=== PATIENT | male | born 1950 | race Caucasian/White ===

== ENCOUNTER → 2016-07-12 | Outpatient (CLI) | payer BC ==
[2016-07-12 09:20] LABS: CHLORIDE,CL 107 mmol/L (98-110); SODIUM,NA 141 mmol/L (136-146)
== END ==
LOC: MW.CHFP 08:26
PROVIDERS: ATTEND Family Medicine
DX: I10 Essential (primary) hypertension (principal); E11.9 Type 2 diabetes mellitus without complications; E78.00 Pure hypercholesterolemia, unspecified
CPT/HCPCS: 36415; 80053; 80061; 83036

== ENCOUNTER → 2016-07-14 | Outpatient (CLI) | payer BC ==
--- NOTE | 2016-07-18 13:49 | US ---
EXAMINATION: EMILIE HISTORY: Atherosclerotic heart disease COMPARISON: None TECHNIQUE: Pressures obtained in the upper and lower extremities bilaterally. FINDINGS/IMPRESSION: The left EMILIE is normal and greater than 1. The right EMILIE is normal and greater than 1.
== END ==
LOC: MW.US 14:47
PROVIDERS: ATTEND Family Medicine
DX: M79.604 Pain in right leg (principal); M79.605 Pain in left leg; E11.65 Type 2 diabetes mellitus with hyperglycemia
CPT/HCPCS: 93922; 93922-26

== ENCOUNTER 2016-11-01 22:14 | Emergency (ER) | payer BC, MEDICARE ==
--- NOTE | 2016-11-01 22:37 | EDM.PDOC ---
ED HPI GENERAL MEDICAL PROBLEM - General Chief Complaint: ENT Problem Stated Complaint: TOOTH PAIN Time Seen by Provider: 11/01/16 22:33 - History of Present Illness INITIAL COMMENTS - FREE TEXT/NARRATIVE: HISTORY AND PHYSICAL: History of present illness: Patient 66-year-old male presents with a concern of pentalogy states he's had this off-and-on for the last 6 months been worse recently he is scheduled to get in to see his dentist this is been a financial challenge to date he denies allergies or other concern is been no fever chills nausea vomiting or other complaints Review of systems: As per history of present illness and below otherwise all systems reviewed and negative. Past medical history: As per history of present illness and as reviewed below otherwise noncontributory. Surgical history: As per history of present illness and as reviewed below otherwise noncontributory. Social history: No reported history of drug or alcohol abuse. Family history: As per history of present illness and as reviewed below otherwise noncontributory. Physical exam: HEENT: Atraumatic, normocephalic, pupils reactive, negative for conjunctival pallor or scleral icterus, mucous membranes moist, throat clear, neck supple, nontender, trachea midline. Patient is generally poor dentition he has multiple dental caries with secondary fractures and multiple missing teeth Lungs: Clear to auscultation, breath sounds equal bilaterally, chest nontender. Heart: S1S2, regular, negative for clicks, rubs, or JVD. Abdomen: Soft, nondistended, nontender. Negative for masses or hepatosplenomegaly. Negative for costovertebral tenderness. Pelvis: Stable nontender. Genitourinary: Deferred. Rectal: Deferred. Extremities: Atraumatic, negative for cords or calf pain. Neurovascular unremarkable. Neuro: Awake, alert, oriented. Cranial nerves II through XII unremarkable. Cerebellum unremarkable. Motor and sensory unremarkable throughout. Exam nonfocal. Diagnostics: None Therapeutics: None Impression: #1 dentalgia #2 multiple dental caries #3 rule out dental abscess Definitive disposition and diagnosis as appropriate pending reevaluation and review of above. Left Upper Tooth/Teeth Pain Score (Numeric/FACES): 5 - Related Data Allergies Allergy/AdvReac Type Severity Reaction Status Date / Time ibuprofen [From Motrin] Allergy Hives Verified 10/18/13 15:48 lisinopril Allergy Cannot Verified 10/18/13 15:48 Remember Home Meds: Home Meds Aspirin [Shey Chewable] 162 mg PO DAILY 10/18/13 [History] Clopidogrel [Plavix] 75 mg PO DAILY 10/18/13 [History] Metoprolol Succinate [Toprol XL] 25 mg PO DAILY 10/18/13 [History] Pantoprazole [Protonix] 40 mg PO DAILY 10/18/13 [History] Simvastatin [Zocor] 80 mg PO BEDTIME 10/18/13 [History] metFORMIN [Glucophage] 500 mg PO BIDM 10/18/13 [History] Social & Family History - Tobacco Use Years of Tobacco use: 15 - Alcohol Use Days Per Week of Alcohol Use: 7 Number of Drinks Per Day: 2 Total Drinks Per Week: 14 - Recreational Drug Use Recreational Drug Use: No ED ROS GENERAL - Review of Systems Review Of Systems: ROS reveals no pertinent complaints other than HPI. ED EXAM, GENERAL - Physical Exam Exam: See Below (See dictation) Course - Vital Signs Last Recorded V/S: Last Vital Signs Temp 36.2 C 11/01/16 22:19 Pulse 82 11/01/16 22:19 Resp 24 H 11/01/16 22:19 BP 175/95 H 11/01/16 22:19 Pulse Ox 95 11/01/16 22:19 Departure - Departure Time of Disposition: 22:36 Disposition: Home, Self-Care 01 Condition: Good Clinical Impression: Dentalgia, Dental caries, Dental abscess - Discharge Information Forms: ED Department Discharge Additional Instructions: The following information is given to patients seen in the emergency department who are being discharged to home. This information is to outline your options for follow-up care. We provide all patients seen in our emergency department with a follow-up referral. The need for follow-up, as well as the timing and circumstances, are variable depending upon the specifics of your emergency department visit. If you don't have a primary care physician on staff, we will provide you with a referral. We always advise you to contact your personal physician following an emergency department visit to inform them of the circumstance of the visit and for follow-up with them and/or the need for any referrals to a consulting specialist. The emergency department will also refer you to a specialist when appropriate. This referral assures that you have the opportunity for followup care with a specialist. All of these measure are taken in an effort to provide you with optimal care, which includes your followup. Under all circumstances we always encourage you to contact your private physician who remains a resource for coordinating your care. When calling for followup care, please make the office aware that this follow-up is from your recent emergency room visit. If for any reason you are refused follow-up, please contact the [facility] emergency department at and asked to speak to the emergency department charge nurse. Follow-up dentist as discussed pen VK Ultram as prescribed continue current medications return as needed as discussed
[2016-11-02 00:04] VITALS: BP 139/83
== END 2016-11-02 00:01 | disposition home or self-care (01) ==
LOC: MW.ED 22:14
DX: K02.9 Dental caries, unspecified (principal); K04.7 Periapical abscess without sinus; Z88.8 Allergy status to other drugs, medicaments and biological substances; Z79.82 Long term (current) use of aspirin; Z79.84 Long term (current) use of oral hypoglycemic drugs; Z79.02 Long term (current) use of antithrombotics/antiplatelets; Z79.899 Other long term (current) drug therapy
CPT/HCPCS: 99282; 99283

== ENCOUNTER 2017-04-13 17:56 | Observation (INO) | payer MEDICARE, BC ==
[2017-04-13] MEDS ORDERED: Albuterol/Ipratropium 3.0-0.5 MG/3 ML Neb Soln NEB ONE (18:17)
--- NOTE | 2017-04-13 18:22 | EDM.PDOC ---
ED HPI GENERAL MEDICAL PROBLEM - General Chief Complaint: Respiratory Problem Stated Complaint: COUGH Time Seen by Provider: 04/13/17 18:00 Source of Information: Reports: Patient History Limitations: Reports: No Limitations - History of Present Illness INITIAL COMMENTS - FREE TEXT/NARRATIVE: HISTORY AND PHYSICAL: History of present illness: Patient is a 66-year-old male who presents to the emergency room today with complaints of cough and chest congestion x 3-4 days. He denies any fever or chills. Denies any chest pain or shortness of breath. Does state he has upper abdominal pain when coughing, but not while resting. Denies any nausea, vomiting or diarrhea. Has not had the flu vaccine this year. Declined any previous history of lung diseases or illnesses. Review of systems: As per history of present illness and below otherwise all systems reviewed and negative. Past medical history: As per history of present illness and as reviewed below otherwise noncontributory. Surgical history: As per history of present illness and as reviewed below otherwise noncontributory. Social history: No reported history of drug or alcohol abuse. Family history: As per history of present illness and as reviewed below otherwise noncontributory. Physical exam: Gen.: Well-developed and well-nourished 66-year-old male. Alert and oriented. Appears nontoxic and in no acute distress HEENT: Atraumatic, normocephalic, pupils reactive, negative for conjunctival pallor or scleral icterus, mucous membranes moist, throat clear, neck supple, nontender, trachea midline. Lungs: Fine expiratory wheezing noted to the posterior lungs with diminished bases, breath sounds equal bilaterally, chest nontender. Heart: S1S2, regular rate and rhythm Abdomen: Soft, nondistended, nontender. Negative for masses or hepatosplenomegaly. Negative for costovertebral tenderness. Pelvis: Stable nontender. Genitourinary: Deferred. Rectal: Deferred. Extremities: Atraumatic, moves all per self, negative for cords or calf pain. Neurovascular unremarkable. Neuro: Awake, alert, oriented. Cranial nerves II through XII unremarkable. Cerebellum unremarkable. Motor and sensory unremarkable throughout. Exam nonfocal. Patient tested positive for influenza A. Not a canidate for Tamiflu. Chest x- ray is reading as normal with no pneumonia or infiltrates noted. EKG shows no significant changes since previous, normal sinus rhythm. Patient resting has an oxygen saturation of 88% to 99% on room air. Did ambulate the patient in the hallway and its remain the same. Dr Grajeda is consulted on this case. Patient will be admitted to [facility] for observation for influenza and hypoxia. Patient is agreeable to stay. He denies any questions at this time. Diagnostics: Influenza, chest x-ray, EKG, (new): CBC, CMP Therapeutics: DuoNeb Impression: #1 Influenza A #2 Hypoxemia Plan: Observation admission per Dr. Grajeda Definitive disposition and diagnosis as appropriate pending reevaluation and review of above. Duration: Day(s): Location: Reports: Chest - Related Data Allergies Allergy/AdvReac Type Severity Reaction Status Date / Time ibuprofen [From Motrin] Allergy Hives Verified 04/13/17 18:12 lisinopril Allergy Cannot Verified 04/13/17 18:12 Remember Home Meds: Home Meds Aspirin [Shey Chewable] 162 mg PO DAILY 10/18/13 [History] Clopidogrel [Plavix] 75 mg PO DAILY 10/18/13 [History] Metoprolol Succinate [Toprol XL] 25 mg PO DAILY 10/18/13 [History] Pantoprazole [Protonix] 40 mg PO DAILY 10/18/13 [History] Simvastatin [Zocor] 80 mg PO BEDTIME 10/18/13 [History] metFORMIN [Glucophage] 500 mg PO BIDM 10/18/13 [History] Past Medical History HEENT History: Reports: Impaired Vision Other HEENT History: wears glasses Cardiovascular History: Reports: Hypertension, [place], Stents Gastrointestinal History: Reports: GERD - Infectious Disease History Infectious Disease History: Reports: None - Past Surgical History Cardiovascular Surgical History: Reports: Coronary Artery Stent GI Surgical History: Reports: Appendectomy, Hernia Repair/Other Social & Family History - Family History Family Medical History: Noncontributory - Tobacco Use Smoking Status *Q: Never Smoker Years of Tobacco use: 15 Second Hand Smoke Exposure: No - Caffeine Use Caffeine Use: Reports: Coffee - Alcohol Use Days Per Week of Alcohol Use: 7 Number of Drinks Per Day: 2 Total Drinks Per Week: 14 - Recreational Drug Use Recreational Drug Use: No ED ROS GENERAL - Review of Systems Review Of Systems: ROS reveals no pertinent complaints other than HPI. ED EXAM, GENERAL - Physical Exam Exam: See Below (See dictation) EKG INTERPRETATION EKG Date: 04/13/17 Time: 18:41 Rhythm: NSR Rate (Beats/Min): 100 Course - Vital Signs Last Recorded V/S: Last Vital Signs Temp 98.1 F 04/13/17 18:12 Pulse 106 H 04/13/17 18:12 Resp 20 04/13/17 18:12 BP 135/93 H 04/13/17 18:12 Pulse Ox 91 L 04/13/17 18:12 - Orders/Labs/Meds Orders: Active Orders 24 hr Category Date Time Status Admission Status [Patient Status] [ADT] Stat ADT 04/13/17 19:37 Active EKG Documentation Completion [RC] STAT Care 04/13/17 18:17 Active Oxygen Therapy, ED [RC] ASDIRECTED Care 04/13/17 19:38 Active RT Aerosol Therapy [RC] ASDIRECTED Care 04/13/17 18:17 Active Chest 2V [CR] Stat Exams 04/13/17 18:01 Taken CBC WITH AUTO DIFF [HEME] Stat Lab 04/13/17 19:37 Ordered COMPREHENSIVE METABOLIC PN,CMP [CHEM] Stat Lab 04/13/17 19:37 Ordered Meds: Medications Discontinued Medications Generic Name Dose Route Start Last Admin Trade Name Freq PRN Reason Stop Dose Admin Albuterol/Ipratropium 3 ml 04/13/17 18:17 04/13/17 18:49 Duoneb 3.0-0.5 Mg/3 Ml NEB 04/13/17 18:18 3 ml ONETIME ONE Administration Departure - Departure Time of Disposition: 19:25 Disposition: Refer to Observation Clinical Impression: Influenza A - Discharge Information Referrals: David Gray MD [Primary Care Provider] - Forms: ED Department Discharge Additional Instructions: . - My Orders Last 24 Hours: My Active Orders 04/13/17 18:01 Chest 2V [CR] Stat 04/13/17 18:17 EKG Documentation Completion [RC] STAT RT Aerosol Therapy [RC] ASDIRECTED 04/13/17 19:37 Admission Status [Patient Status] [ADT] Stat CBC WITH AUTO DIFF [HEME] Stat COMPREHENSIVE METABOLIC PN,CMP [CHEM] Stat 04/13/17 19:38 Oxygen Therapy, ED [RC] ASDIRECTED - Assessment/Plan Last 24 Hours: My Active Orders 04/13/17 18:01 Chest 2V [CR] Stat 04/13/17 18:17 EKG Documentation Completion [RC] STAT RT Aerosol Therapy [RC] ASDIRECTED 04/13/17 19:37 Admission Status [Patient Status] [ADT] Stat CBC WITH AUTO DIFF [HEME] Stat COMPREHENSIVE METABOLIC PN,CMP [CHEM] Stat 04/13/17 19:38 Oxygen Therapy, ED [RC] ASDIRECTED
--- NOTE | 2017-04-13 20:13 | PCM.HP ---
H&P History of Present Illness - General Date of Service: 04/13/17 Admit Problem/Dx: Admission Diagnosis/Problem Admission Diagnosis/Problem Influenza due to influenza A virus Source of Information: Patient History Limitations: Reports: No Limitations - History of Present Illness Initial Comments - Free Text/Narative: 66-year-old male presenting emergency department with chief complaint of cough and chest congestion 3-4 days [place] [id number] stents , CAD, hypertension, hyperlipidemia, type 2 diabetes, and hiatal hernia with GERD. Patient states that for the past 3-4 days he has felt generalized weakness with associated cough and congestion. States that main reason why he came in the emergency department was because he was coughing so much that he is stomach muscles were starting hurt. He denies any fever or chills but does state that he has been sweaty in the mornings. He has had no associated nausea or vomiting but one episode of diarrhea today. He did not get the flu vaccine this year. He does have a history of heart disease and had a [place] in 2007 with stents. He is currently on Plavix. Denies any history of pulmonary disease such as asthma or COPD. He is not a smoker. Patient currently denies any chest pain, palpitations , syncopal episodes, or focal neurologic deficits. Emergency department: Patient was found to be hypoxic 88% on room air requiring 2 L nasal cannula to maintain saturations above 92%. He was mildly tachycardic with a heart rate of 104. CBC, CMP, chest x-ray were all unremarkable. Patient was positive for influenza A. Patient was admitted for hypoxia and influenza A. - Related Data Allergies/Adverse Reactions: Allergies Allergy/AdvReac Type Severity Reaction Status Date / Time ibuprofen [From Motrin] Allergy Hives Verified 04/13/17 18:12 lisinopril Allergy Cannot Verified 04/13/17 18:12 Remember Home Medications: Home Meds Aspirin [Shey Chewable] 162 mg PO DAILY 10/18/13 [History] Clopidogrel [Plavix] 75 mg PO DAILY 10/18/13 [History] Metoprolol Succinate [Toprol XL] 25 mg PO DAILY 10/18/13 [History] Pantoprazole [Protonix] 40 mg PO DAILY 10/18/13 [History] Simvastatin [Zocor] 80 mg PO BEDTIME 10/18/13 [History] metFORMIN [Glucophage] 500 mg PO BID 10/18/13 [History] Escitalopram [Lexapro] 10 mg PO BEDTIME 04/13/17 [History] Famotidine 40 mg PO DAILY 04/13/17 [History] Past Medical History HEENT History: Reports: Impaired Vision Other HEENT History: wears glasses Cardiovascular History: Reports: Hypertension, [place], Stents Gastrointestinal History: Reports: GERD - Infectious Disease History Infectious Disease History: Reports: None - Past Surgical History Cardiovascular Surgical History: Reports: Coronary Artery Stent GI Surgical History: Reports: Appendectomy, Hernia Repair/Other Social & Family History - Family History Family Medical History: Noncontributory - Tobacco Use Smoking Status *Q: Never Smoker Years of Tobacco use: 15 Second Hand Smoke Exposure: No - Caffeine Use Caffeine Use: Reports: Coffee - Alcohol Use Days Per Week of Alcohol Use: 7 Number of Drinks Per Day: 2 Total Drinks Per Week: 14 - Recreational Drug Use Recreational Drug Use: No H&P Review of Systems - Review of Systems: Review Of Systems: See Below General: Reports: Malaise, Weakness, Fatigue, Diaphoresis. Denies: Fever, Chills HEENT: Reports: Headaches, Sinus Congestion. Denies: Dysphasia, Sore Throat Pulmonary: Reports: Shortness of Breath, Cough. Denies: Wheezing, Pleuritic Chest Pain, Sputum Cardiovascular: Denies: Chest Pain, Edema Gastrointestinal: Reports: Diarrhea. Denies: Abdominal Pain, Black Stool, Bloody Stool, Nausea, Vomiting Genitourinary: Denies: Dysuria, Hematuria Musculoskeletal: Denies: Neck Pain, Leg Pain Skin: Denies: Cyanosis Psychiatric: Denies: Confusion Neurological: Reports: Headache. Denies: Confusion, Dizziness Hematologic/Lymphatic: Denies: Anemia Exam - Exam Exam: See Below - Vital Signs Vital Signs: Last Vital Signs Temp 98.3 F 04/13/17 20:07 Pulse 104 H 04/13/17 20:07 Resp 24 H 04/13/17 20:07 BP 140/72 04/13/17 20:07 Pulse Ox 93 L 04/13/17 20:07 Weight: 104.326 kg - Exam Quality Assessment: Supplemental Oxygen, DVT Prophylaxis General: Alert, Oriented, Cooperative HEENT: Conjunctiva Clear, EACs Clear, EOMI, Hearing Intact, Mucosa Moist & [place] , Nares Patent, Normal Nasal Septum, Posterior Pharynx Clear, PERRLA Neck: Supple, Trachea Midline, 2 Lungs: Normal Respiratory Effort, Decreased Breath Sounds Cardiovascular: Regular Rate, Regular Rhythm, Normal S1, Normal S2, Systolic Murmur GI/Abdominal Exam: Normal Bowel Sounds, Soft, Non-Tender, No Organomegaly, No Distention Back Exam: Normal Inspection Extremities: Normal Inspection, Non-Tender, No Pedal Edema, Normal Capillary Refill Skin: Warm, Dry, Intact Neurological: Cranial Nerves Intact Neuro Extensive - Mental Status: Alert, Oriented x3, Normal Mood/Affect, Normal Cognition Neuro Extensive - Motor, Sensory, Reflexes: CN II-XII Intact, Normal Gait, Normal Reflexes Psychiatric: Alert, Normal Affect, Normal Mood - Patient Data Result Diagrams: 04/13/17 19:37 04/13/17 20:10 [place] Results Last 24 hrs: Microbiology 04/13/17 18:55 Influenza Type A Antigen Screen - Final Nasopharyngeal Swab Positive Influenza A Ag Influenza Type B Antigen Screen - Final NEGATIVE INFLUENZA B VIRUS AG *Q Meaningful Use (ADM) - VTE *Q VTE Criteria *Q: - Stroke *Q Stroke Criteria *Q: - AMI *Q AMI Criteria *Q: - Problem List (1) Hypoxemia SNOMED Code(s): 379863792 ICD Code: R09.02 - HYPOXEMIA Status: Acute Priority: High Current Visit : Yes (2) History of [place] (myocardial infarction) SNOMED Code(s): 059054139 ICD Code: I25.2 - OLD MYOCARDIAL INFARCTION Status: Chronic Priority: Low Current Visit: Yes (3) Presence of stent in coronary artery in patient with coronary artery disease SNOMED Code(s): 561091940 ICD Code: I25.10 - ATHSCL HEART DISEASE OF [place] CORONARY ARTERY W/O ANG PCTRS; Z95.5 - PRESENCE OF CORONARY ANGIOPLASTY IMPLANT AND GRAFT Status: Chronic Priority: Low Current Visit: Yes (4) DMII (diabetes mellitus, type 2) SNOMED Code(s): 31101615 ICD Code: E11.9 - TYPE 2 DIABETES MELLITUS WITHOUT COMPLICATIONS Status: Chronic Priority: Medium Current Visit: Yes Qualifiers: Diabetes mellitus complication status: without complication Diabetes mellitus grave cleaner insulin use: without grave cleaner use Qualified Code(s): E11.9 - Type 2 diabetes mellitus without complications (5) Hyperlipidemia SNOMED Code(s): 04976637 ICD Code: E78.5 - HYPERLIPIDEMIA, UNSPECIFIED Status: Chronic Priority: Medium Current Visit: Yes Qualifiers: Hyperlipidemia type: unspecified Qualified Code(s): E78.5 - Hyperlipidemia , unspecified (6) Influenza A SNOMED Code(s): 219950311 ICD Code: J10.1 - FLU DUE TO OTH IDENT INFLUENZA VIRUS W OTH RESP MANIFEST Status: Acute Priority: High Current Visit: Yes Problem List Initiated/Reviewed/Updated: Yes Orders Last 24hrs: Active Orders 24 hr Category Date Time Status Admission Status [Patient Status] [ADT] Stat ADT 04/13/17 19:37 Active EKG Documentation Completion [RC] STAT Care 04/13/17 18:17 Active Oxygen Therapy, ED [RC] ASDIRECTED Care 04/13/17 19:38 Active RT Aerosol Therapy [RC] ASDIRECTED Care 04/13/17 18:17 Active Chest 2V [CR] Stat Exams 04/13/17 18:01 Taken CBC WITH AUTO DIFF [HEME] Stat Lab 04/13/17 19:37 Ordered COMPREHENSIVE METABOLIC PN,CMP [CHEM] Stat Lab 04/13/17 19:37 Ordered Assessment/Plan Comment:: 66-year-old male admitted 04/13/17 for hypoxia with influenza A [place] [address] stents on Plavix, CAD, hypertension, hyperlipidemia, type 2 diabetes, and hiatal hernia with GERD. Hypoxia: no history of pulmonary disease and patient is not a smoker. He is still has somewhat decreased breath sounds throughout but chest x-ray was negative. Will treat with DuoNeb every 6 hours and wean oxygen as tolerated. influenza A: Influenza A positive only treat will treat with Tamiflu 75 mg by mouth twice a day. CAD with stent 3: Currently stable we'll continue Plavix and home medications and continue to monitor. Hypertension: Currently stable will resume home medications. Hyperlipidemia: Currently stable resume home medications. Type 2 diabetes: Hold all medications placed on insulin sliding scale medium dose. TIDAC glucose checks GERD: Currently on PPI which we will continue. VTE proph: Heparin, SCD Dispo: 1-2 days pending.
[2017-04-13 20:52] LABS: CHLORIDE,CL 102 mmol/L (98-110); SODIUM,NA 139 mmol/L (136-146)
[2017-04-13] MEDS ORDERED: Lactated Ringers 1,000 ML IV ONE (21:12)
[2017-04-13] MEDS ORDERED: Ondansetron 4 MG/2 ML SDV IVPUSH PRN (22:12)
[2017-04-13] MEDS ORDERED: Benzonatate 100 MG Cap PO PRN (22:12)
[2017-04-13] MEDS ORDERED: Albuterol/Ipratropium 3.0-0.5 MG/3 ML Neb Soln NEB PRN (22:12)
[2017-04-13] MEDS ORDERED: Ondansetron 4 MG Tab.DIS PO PRN (22:12)
[2017-04-13] MEDS ORDERED: Escitalopram 10 MG Tab PO ONE (22:38)
[2017-04-13] MEDS ORDERED: Morphine 2 MG/ML Syringe IVPUSH PRN (22:45)
[2017-04-13] MEDS: Heparin Sodium 5,000 Units/ML Vial SUBCUT SCH (22:50)
[2017-04-13] MEDS: Oseltamivir 75 MG Cap PO SCH (22:51)
[2017-04-13] MEDS ORDERED: Pneumococcal Polyvalent-23 Vaccine 0.5 ML SDV IM ONE (23:20)
[2017-04-13] MEDS ORDERED: FLU Vacc QS 2017-18 (36mos UP)/PF 60 MCG/0.5 ML Syringe IM ONE (23:30)
[2017-04-14] MEDS: Acetaminophen 325 MG Tab PO PRN ×2 (00:04→08:32)
[2017-04-14] MEDS ORDERED: Calcium Carbonate 500 MG Tab.Chew PO PRN (01:58)
[2017-04-14] MEDS: Heparin Sodium 5,000 Units/ML Vial SUBCUT SCH (06:43)
[2017-04-14] MEDS: Insulin Aspart 100 Units/ML 3 ML Pen SUBCUT SCH ×2 (06:44→11:59)
[2017-04-14 06:46] LABS: CHLORIDE,CL 102 mmol/L (98-110); SODIUM,NA 135 mmol/L (136-146)
[2017-04-14] MEDS ORDERED: Calcium Carbonate 500 MG Tab.Chew PO ONE (08:06)
[2017-04-14] MEDS: Oseltamivir 75 MG Cap PO SCH (08:28)
[2017-04-14] MEDS ORDERED: Clopidogrel 75 MG Tab PO SCH (09:00)
[2017-04-14] MEDS ORDERED: Aspirin 81 MG Tab.Chew PO SCH (09:00)
[2017-04-14] MEDS ORDERED: Metoprolol Succinate 25 MG Tab.ER PO SCH (09:00)
--- NOTE | 2017-04-14 10:29 | PCM.PN ---
- Patient Data Vitals - Most Recent: Last Vital Signs Temp 98.3 F 04/14/17 08:00 Pulse 106 H 04/14/17 08:27 Resp 18 04/14/17 08:00 BP 133/76 04/14/17 08:27 Pulse Ox 93 L 04/14/17 08:00 Weight - Most Recent: 104.326 kg I&O - Last 24 Hours: Intake & Output 04/13/17 04/14/17 04/14/17 22:59 06:59 14:59 Intake Total 200 Output Total 450 Balance -250 Lab Results Last 24 Hours: Laboratory Results - last 24 hr 04/14/17 04/14/17 04/14/17 Range/Units 06:05 06:05 06:18 WBC 6.25 (4.0-11.0) K/uL RBC 4.67 (4.50-5.90) M/uL Hgb 14.0 (13.0-17.0) g/dL Hct 42.8 (38.0-50.0) % MCV 91.6 (80.0-98.0) fL MCH 30.0 (27.0-32.0) pg MCHC 32.7 (31.0-37.0) g/dL RDW Std Deviation 46.9 (28.0-62.0) fl RDW Coeff of Jose Enrique 14 (11.0-15.0) % Plt Count 202 (150-400) K/uL MPV 12.00 (7.40-12.00) fL Nucleated RBC % 0.0 /100WBC Nucleated RBCs # 0 K/uL Sodium 135 L (136-146) mmol/L Potassium 3.7 (3.5-5.1) mmol/L Chloride 102 (98-110) mmol/L Carbon Dioxide 22 (21-31) mmol/L BUN 13 (6.0-23.0) mg/dL Creatinine 0.8 (0.6-1.5) mg/dL Est Cr Clr Drug Dosing 75.53 mL/min Estimated GFR (MDRD) > 60.0 ml/min Glucose 179 H (60-110) mg/dL POC Glucose 181 H (60-110) mg/dL Calcium 8.6 L (8.8-10.8) mg/dL Med Orders - Current: Current Medications Acetaminophen (Tylenol) 650 mg PO Q4H PRN PRN Reason: Pain (Mild 1-3)/fever Last Admin: 04/14/17 08:32 Dose: 650 mg Albuterol/Ipratropium (Duoneb 3.0-0.5 Mg/3 Ml) 3 ml NEB Q6HRRT PRN PRN Reason: Shortness Of Breath/wheezing Aspirin (Aspirin) 162 mg PO DAILY [facility] Last Admin: 04/14/17 08:27 Dose: 162 mg Benzonatate (Tessalon Perles) 200 mg PO BID PRN PRN Reason: Cough Last Admin: 04/13/17 22:50 Dose: 200 mg Calcium Carbonate/Glycine (Tums) 1,000 mg PO Q4H PRN PRN Reason: Indigestion Clopidogrel Bisulfate (Plavix) 75 mg PO DAILY [facility] Last Admin: 04/14/17 08:28 Dose: 75 mg Escitalopram Oxalate (Lexapro) 10 mg PO BEDTIME [facility] Heparin Sodium (Porcine) (Heparin Sodium) 5,000 units SUBCUT Q8H [facility] Last Admin: 04/14/17 06:43 Dose: 5,000 units Insulin Aspart (Novolog) 0 unit SUBCUT TIDAC [facility] PRN Reason: Protocol Last Admin: 04/14/17 06:44 Dose: 2 units Metoprolol Succinate (Toprol Xl) 25 mg PO DAILY [facility] Last Admin: 04/14/17 08:27 Dose: 25 mg Morphine Sulfate (Morphine) 2 mg IVPUSH Q2H PRN PRN Reason: Pain (severe 7-10) Ondansetron HCl (Zofran Odt) 4 mg PO Q4H PRN PRN Reason: nausea, able to take PO Ondansetron HCl (Zofran) 4 mg IVPUSH Q4H PRN PRN Reason: Nausea Oseltamivir Phosphate (Tamiflu) 75 mg PO BID [facility] Last Admin: 04/14/17 08:28 Dose: 75 mg Simvastatin (Zocor) 80 mg PO BEDTIME [facility] Discontinued Medications Albuterol/Ipratropium (Duoneb 3.0-0.5 Mg/3 Ml) 3 ml NEB ONETIME ONE Stop: 04/13/17 18:18 Last Admin: 04/13/17 18:49 Dose: 3 ml Calcium Carbonate/Glycine (Tums) 1,000 mg PO ONETIME ONE Stop: 04/14/17 08:07 Last Admin: 04/14/17 08:27 Dose: 1,000 mg Escitalopram Oxalate (Lexapro) 10 mg PO ONETIME ONE Stop: 04/13/17 22:39 Last Admin: 04/13/17 22:50 Dose: 10 mg Lactated Ringer's (Ringers, Lactated) 1,000 mls @ 150 mls/hr IV .BOLUS ONE Stop: 04/14/17 03:51 Last Admin: 04/13/17 22:50 Dose: 150 mls/hr Influenza Virus Vaccine (Pharmacy To Dose - Influenza Vaccine) 1 each IM ONETIME ONE Stop: 04/13/17 23:21 Influenza Virus Vaccine (Fluarix Quad [id number]) 60 mcg IM .ONCE ONE Stop: 04/13/17 23:31 Pneumococcal Polyvalent Vaccine (Pneumovax 23) 0.5 ml IM .ONCE ONE Stop: 04/13/17 23:21 - Problem List & Annotations (1) Hypoxemia SNOMED Code(s): 003132881 Code(s): R09.02 - HYPOXEMIA Status: Acute Priority: High Current Visit : Yes (2) History of MD (myocardial infarction) SNOMED Code(s): 879945016 Code(s): I25.2 - OLD MYOCARDIAL INFARCTION Status: Chronic Priority: Low Current Visit: Yes (3) Presence of stent in coronary artery in patient with coronary artery disease SNOMED Code(s): 140414929 Code(s): I25.10 - ATHSCL HEART DISEASE OF [place] CORONARY ARTERY W/O ANG PCTRS; Z95.5 - PRESENCE OF CORONARY ANGIOPLASTY IMPLANT AND GRAFT Status: Chronic Priority: Low Current Visit: Yes (4) DMII (diabetes mellitus, type 2) SNOMED Code(s): 97470013 Code(s): E11.9 - TYPE 2 DIABETES MELLITUS WITHOUT COMPLICATIONS Status: Chronic Priority: Medium Current Visit: Yes Qualifiers: Diabetes mellitus complication status: without complication Diabetes mellitus care home insulin use: without research worker kitchen use Qualified Code(s): E11.9 - Type 2 diabetes mellitus without complications (5) Hyperlipidemia SNOMED Code(s): 90943093 Code(s): E78.5 - HYPERLIPIDEMIA, UNSPECIFIED Status: Chronic Priority: Medium Current Visit: Yes Qualifiers: Hyperlipidemia type: unspecified Qualified Code(s): E78.5 - Hyperlipidemia , unspecified (6) Influenza A SNOMED Code(s): 268490512 Code(s): J10.1 - FLU DUE TO OTH IDENT INFLUENZA VIRUS W OTH RESP MANIFEST Status: Acute Priority: High Current Visit: Yes - My Orders Last 24 Hours: My Active Orders 04/13/17 21:00 Oseltamivir [Tamiflu] 75 mg PO BID 04/13/17 22:12 Patient Status [ADT] Routine Blood Glucose Check, Bedside [RC] TIDAC Up With Assistance [RC] ASDIRECTED Vital Signs [RC] Q4H Acetaminophen [Tylenol] 650 mg PO Q4H PRN Albuterol/Ipratropium [DuoNeb 3.0-0.5 MG/3 ML] 3 ml NEB Q6HRRT PRN Benzonatate [Tessalon Perles] 200 mg PO BID PRN Ondansetron [Zofran ODT] 4 mg PO Q4H PRN Ondansetron [Zofran] 4 mg IVPUSH Q4H PRN Resuscitation Status Routine 04/13/17 22:13 Antiembolic Devices [RC] PER UNIT ROUTINE Sequential Compression Device [OM.PC] Per Unit Routine 04/13/17 22:14 RT Aerosol Therapy [RC] ASDIRECTED 04/13/17 22:15 Heparin Sodium 5,000 units SUBCUT Q8H 04/13/17 22:45 Morphine 2 mg IVPUSH Q2H PRN 04/14/17 01:58 Calcium Carbonate [Tums] 1,000 mg PO Q4H PRN 04/14/17 07:30 Insulin Aspart [NovoLOG] See Protocol SUBCUT TIDAC 04/14/17 09:00 Aspirin 162 mg PO DAILY Clopidogrel [Plavix] 75 mg PO DAILY Metoprolol Succinate [Toprol XL] 25 mg PO DAILY 04/14/17 21:00 Escitalopram [Lexapro] 10 mg PO BEDTIME Simvastatin [Zocor] 80 mg PO BEDTIME 04/14/17 Breakfast Heart Healthy Diet [DIET] 04/15/17 05:11 BASIC METABOLIC PANEL,BMP [CHEM] AM CBC W/O DIFF,HEMOGRAM [HEME] AM 04/16/17 05:11 BASIC METABOLIC PANEL,BMP [CHEM] AM CBC W/O DIFF,HEMOGRAM [HEME] AM - Plan Plan:: 66-year-old male admitted 04/13/17 for hypoxia with influenza A and past medical history of MD in stents on Plavix, CAD, hypertension, hyperlipidemia, type 2 diabetes, and hiatal hernia with GERD. Hypoxia: no history of pulmonary disease and patient is not a smoker. He is still has somewhat decreased breath sounds throughout but chest x-ray was negative. Will treat with DuoNeb every 6 hours and wean oxygen as tolerated. influenza A: Influenza A positive only treat will treat with Tamiflu 75 mg by mouth twice a day. CAD with stent 3: Currently stable we'll continue Plavix and home medications and continue to monitor. Hypertension: Currently stable will resume home medications. Hyperlipidemia: Currently stable resume home medications. Type 2 diabetes: Hold all medications placed on insulin sliding scale medium dose. TIDAC glucose checks GERD: Currently on PPI which we will continue. VTE proph: Heparin, SCD Dispo: 1-2 days pending.
--- NOTE | 2017-04-14 11:55 | PCM.DCSUM1 ---
Discharge Summary - Hospital Course HPI Initial Comments: 66-year-old male admitted 04/13/17 for hypoxia with influenza [place] [id number] [place] Plavix, CAD, hypertension, hyperlipidemia, type 2 diabetes, and hiatal hernia with GERD. Brief History: Patient stated that for the previous 3-4 days before admission he felt generalized weakness with associated cough and congestion. Stated that main reason why he came in to the emergency department was because he was coughing so much that his stomach muscles were starting hurt. He denied any fever or chills but did state that he had been sweaty in the mornings. He had no associated nausea or vomiting but one episode of diarrhea on day of admission. He did not get the flu vaccine this year. He does have a history of heart disease and had a [place] in 2007 with stents. He is currently on Plavix. Denied any history of pulmonary disease such as asthma or COPD. He is not a smoker. Patient denied any chest pain, palpitations, syncopal episodes, or focal neurologic deficits. - Discharge Data Discharge Date: 04/14/17 Discharge Disposition: Home, Self-Care 01 Condition: Good - Discharge Diagnosis/Problem(s) (1) Hypoxemia SNOMED Code(s): 794051099 ICD Code: R09.02 - HYPOXEMIA Status: Resolved Priority: High (2) History of [place] (myocardial infarction) SNOMED Code(s): 501268096 ICD Code: I25.2 - OLD MYOCARDIAL INFARCTION Status: Chronic Priority: Low (3) Presence of stent in coronary artery in patient with coronary artery disease SNOMED Code(s): 927832063 ICD Code: I25.10 - ATHSCL HEART DISEASE OF [place] CORONARY ARTERY W/O ANG PCTRS; Z95.5 - PRESENCE OF CORONARY ANGIOPLASTY IMPLANT AND GRAFT Status: Chronic Priority: Low (4) DMII (diabetes mellitus, type 2) SNOMED Code(s): 07521971 ICD Code: E11.9 - TYPE 2 DIABETES MELLITUS WITHOUT COMPLICATIONS Status: Chronic Priority: Medium Qualifiers: Diabetes mellitus complication status: without complication Diabetes mellitus detention insulin use: without detention use Qualified Code(s): E11.9 - Type 2 diabetes mellitus without complications (5) Hyperlipidemia SNOMED Code(s): 01030896 ICD Code: E78.5 - HYPERLIPIDEMIA, UNSPECIFIED Status: Chronic Priority: Medium Qualifiers: Hyperlipidemia type: unspecified Qualified Code(s): E78.5 - Hyperlipidemia , unspecified (6) Influenza A SNOMED Code(s): 942083559 ICD Code: J10.1 - FLU DUE TO OTH IDENT INFLUENZA VIRUS W OTH RESP MANIFEST Status: Acute Priority: High - Patient Instructions Diet: Heart Healthy Diet Activity: Rest and Relax Today Driving: Do Not Drive Showering/Bathing: May Shower Notify Provider of: Fever, Increased Pain, Nausea and/or Vomiting - Discharge Plan Prescriptions/Med Rec: Oseltamivir Phosphate [IJD: Tamiflu] 75 mg PO BID #8 capsule Home Medications: Home Meds Aspirin [Shey Chewable Aspirin] 162 mg PO DAILY 10/18/13 [History] Clopidogrel [Plavix] 75 mg PO DAILY 10/18/13 [History] Metoprolol Succinate [Toprol XL] 25 mg PO DAILY 10/18/13 [History] Pantoprazole [ProTONIX Granules] 40 mg PO DAILY 10/18/13 [History] Simvastatin [Zocor] 80 mg PO BEDTIME 10/18/13 [History] metFORMIN [Glucophage] 500 mg PO BID 10/18/13 [History] Escitalopram [Lexapro] 10 mg PO BEDTIME 04/13/17 [History] Famotidine 40 mg PO DAILY 04/13/17 [History] Oseltamivir Phosphate [IJD: Tamiflu] 75 mg PO BID #8 capsule 04/14/17 [Rx] Patient Handouts: Influenza, Adult, [id number], Oseltamivir capsules Referrals: David Gray MD [Primary Care Provider] - (Please follow-up with Dr. Gray in 1 week.) - Discharge Summary/Plan Comment DC Time >30 min.: Yes Discharge Summary/Plan Comment: 66-year-old male admitted 04/13/17 for hypoxia with influenza A and past medical history of [place] in stents on Plavix, CAD, hypertension, hyperlipidemia, type 2 diabetes, and hiatal hernia with GERD. Patient stated that for the previous 3-4 days before admission he felt generalized weakness with associated cough and congestion. Stated that main reason why he came in to the emergency department was because he was coughing so much that his stomach muscles were starting hurt. He denied any fever or chills but did state that he had been sweaty in the mornings. He had no associated nausea or vomiting but one episode of diarrhea on day of admission. He did not get the flu vaccine this year. He does have a history of heart disease and had a [place] in 2007 with stents. He is currently on Plavix. Denied any history of pulmonary disease such as asthma or COPD. He is not a smoker. Patient denied any chest pain, palpitations, syncopal episodes, or focal neurologic deficits. Emergency department:Patient was found to be hypoxic 88% on room air requiring 2 L nasal cannula to maintain saturations above 92%. He was mildly tachycardic with a heart rate of 104. CBC, CMP, chest x-ray were all unremarkable. Patient was positive for influenza A. Patient was admitted for hypoxia and influenza A. Patient was given Duo-Nebs as well as Tamiflu and slowly weened from oxygen support. On second day of admission he was sating 94 % on room air and was discharged in good condition with a prescription for Tamiflu, a follow-up appointment with his PCP and told to return to the ED if he had any return or worsening of his symptoms. - General Info Date of Service: 04/14/17 Admission Dx/Problem (Free Text: Admission Diagnosis/Problem Admission Diagnosis/Problem Influenza due to influenza A virus Subjective Update: Doing much better this morning. Still having cough but much improved and no longer needing supplemental oxygen. - Review of Systems General: Reports: Fatigue. Denies: Fever, Weakness, Malaise, Chills HEENT: Denies: Dysphasia, Headaches Pulmonary: Reports: Cough. Denies: Shortness of Breath, Sputum, Hemoptysis Cardiovascular: Denies: Chest Pain, Palpitations Gastrointestinal: Denies: Abdominal Pain, Nausea, Vomiting Genitourinary: Denies: Dysuria, Hematuria Musculoskeletal: Denies: Neck Pain, Leg Pain Skin: Denies: Cyanosis Neurological: Denies: Confusion, Dizziness, Headache Psychiatric: Denies: Confusion - Patient Data Vitals - Most Recent: Last Vital Signs Temp 98.3 F 04/14/17 08:00 Pulse 106 H 04/14/17 08:27 Resp 18 04/14/17 08:00 BP 133/76 04/14/17 08:27 Pulse Ox 93 L 04/14/17 08:00 Weight - Most Recent: 104.326 kg I&O - Last 24 hours: Intake & Output 04/13/17 04/14/17 04/14/17 22:59 06:59 14:59 Intake Total 200 Output Total 450 Balance -250 Lab Results - Last 24 hrs: Laboratory Results - last 24 hr 04/14/17 04/14/17 04/14/17 Range/Units 06:05 06:05 06:18 WBC 6.25 (4.0-11.0) K/uL RBC 4.67 (4.50-5.90) M/uL Hgb 14.0 (13.0-17.0) g/dL Hct 42.8 (38.0-50.0) % MCV 91.6 (80.0-98.0) fL MCH 30.0 (27.0-32.0) pg MCHC 32.7 (31.0-37.0) g/dL RDW Std Deviation 46.9 (28.0-62.0) fl RDW Coeff of Jose Enrique 14 (11.0-15.0) % Plt Count 202 (150-400) K/uL MPV 12.00 (7.40-12.00) fL Nucleated RBC % 0.0 /100WBC Nucleated RBCs # 0 K/uL Sodium 135 L (136-146) mmol/L Potassium 3.7 (3.5-5.1) mmol/L Chloride 102 (98-110) mmol/L Carbon Dioxide 22 (21-31) mmol/L BUN 13 (6.0-23.0) mg/dL Creatinine 0.8 (0.6-1.5) mg/dL Est Cr Clr Drug Dosing 75.53 mL/min Estimated GFR (MDRD) > 60.0 ml/min Glucose 179 H (60-110) mg/dL POC Glucose 181 H (60-110) mg/dL Calcium 8.6 L (8.8-10.8) mg/dL Med Orders - Current: Current Medications Acetaminophen (Tylenol) 650 mg PO Q4H PRN PRN Reason: Pain (Mild 1-3)/fever Last Admin: 04/14/17 08:32 Dose: 650 mg Albuterol/Ipratropium (Duoneb 3.0-0.5 Mg/3 Ml) 3 ml NEB Q6HRRT PRN PRN Reason: Shortness Of Breath/wheezing Aspirin (Aspirin) 162 mg PO DAILY [facility] Last Admin: 04/14/17 08:27 Dose: 162 mg Benzonatate (Tessalon Perles) 200 mg PO BID PRN PRN Reason: Cough Last Admin: 04/13/17 22:50 Dose: 200 mg Calcium Carbonate/Glycine (Tums) 1,000 mg PO Q4H PRN PRN Reason: Indigestion Clopidogrel Bisulfate (Plavix) 75 mg PO DAILY [facility] Last Admin: 04/14/17 08:28 Dose: 75 mg Escitalopram Oxalate (Lexapro) 10 mg PO BEDTIME [facility] Heparin Sodium (Porcine) (Heparin Sodium) 5,000 units SUBCUT Q8H [facility] Last Admin: 04/14/17 06:43 Dose: 5,000 units Insulin Aspart (Novolog) 0 unit SUBCUT TIDAC [facility] PRN Reason: Protocol Last Admin: 04/14/17 06:44 Dose: 2 units Metoprolol Succinate (Toprol Xl) 25 mg PO DAILY [facility] Last Admin: 04/14/17 08:27 Dose: 25 mg Morphine Sulfate (Morphine) 2 mg IVPUSH Q2H PRN PRN Reason: Pain (severe 7-10) Ondansetron HCl (Zofran Odt) 4 mg PO Q4H PRN PRN Reason: nausea, able to take PO Ondansetron HCl (Zofran) 4 mg IVPUSH Q4H PRN PRN Reason: Nausea Oseltamivir Phosphate (Tamiflu) 75 mg PO BID [facility] Last Admin: 04/14/17 08:28 Dose: 75 mg Simvastatin (Zocor) 80 mg PO BEDTIME [facility] Discontinued Medications Albuterol/Ipratropium (Duoneb 3.0-0.5 Mg/3 Ml) 3 ml NEB ONETIME ONE Stop: 04/13/17 18:18 Last Admin: 04/13/17 18:49 Dose: 3 ml Calcium Carbonate/Glycine (Tums) 1,000 mg PO ONETIME ONE Stop: 04/14/17 08:07 Last Admin: 04/14/17 08:27 Dose: 1,000 mg Escitalopram Oxalate (Lexapro) 10 mg PO ONETIME ONE Stop: 04/13/17 22:39 Last Admin: 04/13/17 22:50 Dose: 10 mg Lactated Ringer's (Ringers, Lactated) 1,000 mls @ 150 mls/hr IV .BOLUS ONE Stop: 04/14/17 03:51 Last Admin: 04/13/17 22:50 Dose: 150 mls/hr Influenza Virus Vaccine (Pharmacy To Dose - Influenza Vaccine) 1 each IM ONETIME ONE Stop: 04/13/17 23:21 Influenza Virus Vaccine (Fluarix Quad [id number]) 60 mcg IM .ONCE ONE Stop: 04/13/17 23:31 Pneumococcal Polyvalent Vaccine (Pneumovax 23) 0.5 ml IM .ONCE ONE Stop: 04/13/17 23:21 - Exam Quality Assessment: Reports: DVT Prophylaxis General: Reports: Alert, Oriented, Cooperative, No Acute Distress HEENT: Reports: Pupils Equal, Pupils Reactive, EOMI, Mucous Membr. Moist/[place] Neck: Reports: Supple, Trachea Midline, No JVD Lungs: Reports: Clear to Auscultation, Normal Respiratory Effort Cardiovascular: Reports: Regular Rate, Regular Rhythm, Murmurs GI/Abdominal Exam: Normal Bowel Sounds, Soft, Non-Tender, No Organomegaly, No Distention (Male) Exam: Deferred Rectal (Males) Exam: Deferred Back Exam: Reports: Normal Inspection Extremities: Normal Inspection, Normal Range of Motion, Non-Tender, No Pedal Edema, Normal Capillary Refill Skin: Reports: Warm, Dry, Intact Neurological: Reports: No New Focal Deficit Psy/Mental Status: Reports: Alert, Normal Affect, Normal Mood *Q Meaningful Use (DIS) - VTE *Q VTE Criteria *Q: - Stroke *Q Stroke Criteria *Q: - AMI *Q AMI Criteria *Q:
[2017-04-14 12:16] VITALS: BP 135/86
[2017-04-14] MEDS ORDERED: Simvastatin 40 MG Tab PO SCH (21:00)
[2017-04-14] MEDS ORDERED: Escitalopram 10 MG Tab PO SCH (21:00)
--- NOTE | 2017-04-16 12:32 | CR ---
EXAM DATE: 04/13/17 PATIENT'S AGE: 66 Patient: EITAN SCOTT Facility: [place], [place] Site . Site : 1950 Study: XRay Chest [id number]/26/2018 7:12:59 PM Ordering Physician: Doctor Jo Final Report: INDICATION: Pain, SOB INDICATION: Pain. Shortness of breath. TECHNIQUE: Chest 2 views. COMPARISON: 05/03/2016. FINDINGS: Cardiovascular and mediastinum: Heart size and vasculature are normal in caliber and appearance. Mediastinum is within normal limits. Lungs and pleural spaces: Lungs are clear. No sign of infiltrate or mass. No sign of pleural effusion. No pneumothorax. Bones and soft tissues: No significant findings. IMPRESSION: No acute airspace disease or significant change. Dictated by Dominik Andujar MD @ 04/13/2017 7:18:32 PM Dictated by: Dominik Andujar MD @ 04/13/2017 19:18:54 (Electronic Signature) Report Signed by Proxy. LEOLA
== END 2017-04-14 12:58 | disposition home or self-care (01) ==
LOC: MW.ED 17:56 → MW.MS 20:13
PROVIDERS: ADMIT Family Medicine; ATTEND Family Medicine
DX: J10.1 Influenza due to other identified influenza virus with other respiratory manifestations (principal); R09.02 Hypoxemia; I25.2 Old myocardial infarction; I25.10 Atherosclerotic heart disease of native coronary artery without angina pectoris; I10 Essential (primary) hypertension; E78.5 Hyperlipidemia, unspecified; E11.9 Type 2 diabetes mellitus without complications; K21.9 Gastro-esophageal reflux disease without esophagitis; Z79.82 Long term (current) use of aspirin; Z95.5 Presence of coronary angioplasty implant and graft; Z79.02 Long term (current) use of antithrombotics/antiplatelets; Z79.899 Other long term (current) drug therapy; Z79.84 Long term (current) use of oral hypoglycemic drugs; Z88.6 Allergy status to analgesic agent; Z88.8 Allergy status to other drugs, medicaments and biological substances; Z90.49 Acquired absence of other specified parts of digestive tract
CPT/HCPCS: 36415; 71046; 80048; 80053; 82962; 85025; 85027; 87804; 94640; 96372; 99285; A9270; G0378; J1644; J1815; J7120

== ENCOUNTER 2019-04-15 14:32 | Emergency (ER) | payer BC, MEDICARE ==
--- NOTE | 2019-04-15 15:35 | EDM.PDOC ---
ED HPI GENERAL MEDICAL PROBLEM - General Chief Complaint: General Stated Complaint: COUGH Time Seen by Provider: 04/15/19 15:34 Source of Information: Reports: Patient - History of Present Illness INITIAL COMMENTS - FREE TEXT/NARRATIVE: HISTORY AND PHYSICAL: History of present illness: [Patient presents with cough and sore throat cough is been present for 2 weeks patient is in no distress no fever nausea vomiting chills sweats no chest pain shortness of breath headache dizziness palpitation no bowel or urine symptoms no muffled voice drooling or trismus ] Review of systems: As per history of present illness and below otherwise all systems reviewed and negative. Past medical history: As per history of present illness and as reviewed below otherwise noncontributory. Surgical history: As per history of present illness and as reviewed below otherwise noncontributory. Social history: No reported history of drug or alcohol abuse. Family history: As per history of present illness and as reviewed below otherwise noncontributory. Physical exam: HEENT: Atraumatic, normocephalic, pupils reactive, negative for conjunctival pallor or scleral icterus, mucous membranes moist, throat clear, neck supple, nontender, trachea midline. Oropharynx moderate erythema no exudates no meningeal signs Lungs: Clear to auscultation, breath sounds equal bilaterally, chest nontender. Heart: S1S2, regular, negative for clicks, rubs, or JVD. Abdomen: Soft, nondistended, nontender. Negative for masses or hepatosplenomegaly. Negative for costovertebral tenderness. Pelvis: Stable nontender. Genitourinary: Deferred. Rectal: Deferred. Extremities: Atraumatic, negative for cords or calf pain. Neurovascular unremarkable. Neuro: Awake, alert, oriented. Cranial nerves II through XII unremarkable. Cerebellum unremarkable. Motor and sensory unremarkable throughout. Exam nonfocal. Diagnostics: [INFLUenza/strep chest 1v ] Therapeutics: [Z-Steven HFA ] Impression: [pharyngitis Bronchitis] Definitive disposition and diagnosis as appropriate pending reevaluation and review of above. Throat Pain Score (Numeric/FACES): 8 - Related Data Allergies Allergy/AdvReac Type Severity Reaction Status Date / Time ibuprofen [From Motrin] Allergy Hives Verified 04/15/19 14:56 lisinopril Allergy Cannot Verified 04/15/19 14:56 Remember Home Meds: Home Meds Aspirin [Shey Chewable Aspirin] 162 mg PO DAILY 10/18/13 [History] Clopidogrel [Plavix] 75 mg PO DAILY 10/18/13 [History] Metoprolol Succinate [Toprol XL] 25 mg PO DAILY 10/18/13 [History] Simvastatin [Zocor] 80 mg PO BEDTIME 10/18/13 [History] metFORMIN [Glucophage] 1,000 mg PO DAILY 10/18/13 [History] Escitalopram [Lexapro] 20 mg PO BEDTIME 04/13/17 [History] Famotidine 40 mg PO DAILY 04/13/17 [History] Empagliflozin [Jardiance] 10 mg PO DAILY 04/15/19 [History] Past Medical History HEENT History: Reports: Impaired Vision Other HEENT History: wears glasses Cardiovascular History: Reports: Hypertension, [place], Stents Gastrointestinal History: Reports: GERD Endocrine/Metabolic History: Reports: Diabetes, Type II - Infectious Disease History Infectious Disease History: Reports: Mumps - Past Surgical History Cardiovascular Surgical History: Reports: Coronary Artery Stent GI Surgical History: Reports: Appendectomy, Hernia Repair/Other Social & Family History - Family History Family Medical History: Noncontributory - Tobacco Use Smoking Status *Q: Former Smoker Used Tobacco, but Quit: Yes Month/Year Tobacco Last Used: 1989 - Caffeine Use Caffeine Use: Reports: Soda - Recreational Drug Use Recreational Drug Use: No ED ROS GENERAL - Review of Systems Review Of Systems: See Below ED EXAM, GENERAL - Physical Exam Exam: See Below Course - Vital Signs Last Recorded V/S: Last Vital Signs Temp 98.9 F 04/15/19 15:00 Pulse 104 H 04/15/19 15:00 Resp 18 04/15/19 15:00 BP 140/88 04/15/19 15:00 Pulse Ox 93 L 04/15/19 15:00 - Orders/Labs/Meds Orders: Active Orders 24 hr Category Date Time Status Chest 1V Frontal [CR] Stat Exams 04/15/19 15:09 Taken CULTURE STREP A CONFIRMATION [RM] Stat Lab 04/15/19 15:34 Results STREP SCRN A RAPID W CULT CONF [RM] Stat Lab 04/15/19 15:34 Results Departure - Departure Time of Disposition: 16:09 Disposition: Home, Self-Care 01 Condition: Good Clinical Impression: Pharyngitis, Bronchitis - Discharge Information Referrals: David Gray MD [Primary Care Provider] - Forms: ED Department Discharge Additional Instructions: The following information is given to patients seen in the emergency department who are being discharged to home. This information is to outline your options for follow-up care. We provide all patients seen in our emergency department with a follow-up referral. The need for follow-up, as well as the timing and circumstances, are variable depending upon the specifics of your emergency department visit. If you don't have a primary care physician on staff, we will provide you with a referral. We always advise you to contact your personal physician following an emergency department visit to inform them of the circumstance of the visit and for follow-up with them and/or the need for any referrals to a consulting specialist. The emergency department will also refer you to a specialist when appropriate. This referral assures that you have the opportunity for follow-up care with a specialist. All of these measure are taken in an effort to provide you with optimal care, which includes your follow-up. Under all circumstances we always encourage you to contact your private physician who remains a resource for coordinating your care. When calling for follow-up care, please make the office aware that this follow-up is from your recent emergency room visit. If for any reason you are refused follow-up, please contact the [facility] emergency department at and asked to speak to the emergency department charge nurse. Sepsis Event Note - Evaluation Sepsis Screening Result: No Definite Risk - Focused Exam Vital Signs: Vital Signs Temp Pulse Resp BP Pulse Ox 04/15/19 15:00 98.9 F 104 H 18 140/88 93 L Date Exam was Performed: 04/15/19 Time Exam was Performed: 16:07 - My Orders Last 24 Hours: My Active Orders 04/15/19 15:09 Chest 1V Frontal [CR] Stat 04/15/19 15:34 CULTURE STREP A CONFIRMATION [RM] Stat STREP SCRN A RAPID W CULT CONF [RM] Stat - Assessment/Plan Last 24 Hours: My Active Orders 04/15/19 15:09 Chest 1V Frontal [CR] Stat 04/15/19 15:34 CULTURE STREP A CONFIRMATION [RM] Stat STREP SCRN A RAPID W CULT CONF [RM] Stat
[2019-04-15] MEDS ORDERED: Diphtheria,Pertussis(Acell),Tetanus Vaccine 0.5 ML Syringe IM ONE (16:16)
[2019-04-15 16:54] VITALS: BP 138/89; PULSE 98
--- NOTE | 2019-04-15 17:02 | CR ---
Chest: Portable view of the chest was obtained. Comparison: Prior chest x-ray of 04/13/17. Heart size and mediastinum are normal for portable technique. Lungs are clear with no acute parenchymal change. Bony structures are unremarkable. Impression: 1. Nothing acute is seen on portable chest x-ray. Diagnostic code #1 Study was dictated in [place] Standard Time
== END 2019-04-15 16:50 | disposition home or self-care (01) ==
LOC: MW.ED 14:32
DX: J02.9 Acute pharyngitis, unspecified (principal); J40 Bronchitis, not specified as acute or chronic; T14.8XXA Other injury of unspecified body region, initial encounter; I10 Essential (primary) hypertension; I25.2 Old myocardial infarction; E11.9 Type 2 diabetes mellitus without complications; Z23 Encounter for immunization; Z79.899 Other long term (current) drug therapy; Z90.49 Acquired absence of other specified parts of digestive tract; Z95.5 Presence of coronary angioplasty implant and graft; Z88.6 Allergy status to analgesic agent; Z88.8 Allergy status to other drugs, medicaments and biological substances; Z79.82 Long term (current) use of aspirin; Z79.84 Long term (current) use of oral hypoglycemic drugs; Z87.891 Personal history of nicotine dependence
CPT/HCPCS: 71045; 71045-26; 87081; 87804; 87880-QW; 90471; 90715; 99283; 99283-25

== ENCOUNTER 2019-11-26 18:41 | Observation (INO) | payer BC, MEDICARE ==
[2019-11-26] MEDS ORDERED: Sodium Chloride 0.9% 10 ML Syringe FLUSH PRN (19:26)
[2019-11-26] MEDS ORDERED: Sodium Chloride 0.9% 10 ML SDV IV PRN (19:26)
[2019-11-26] MEDS ORDERED: Sodium Chloride 0.9% 1,000 ML IV STA (19:26)
[2019-11-26] MEDS ORDERED: Sodium Chloride 0.9% 2.5 ML Syringe FLUSH PRN (19:26)
--- NOTE | 2019-11-26 19:50 | CR ---
INDICATION: stroke code CHEST, ONE VIEW An AP radiograph of the chest was performed. Comparison: No previous studies are currently available for comparison. The lungs appear clear and no pleural effusions are identified. The cardiomediastinal silhouette and pulmonary vasculature appear normal, as do the visualized bones. IMPRESSION: No acute intrathoracic abnormality identified. ALYSON LUGO MD [facility] Dictated by: Brandan Lugo MD @ 11/26/2019 19:49:10 (Electronically Signed)
[2019-11-26 20:04] LABS: BLOOD UREA NITROGEN,BUN 10 mg/dL (7.0-18.0); CARBON DIOXIDE,CO2 20.4 mmol/L (21.0-32.0); CHLORIDE,CL 104 mmol/L (98-107); GLUCOSE RANDOM 129 mg/dL (74-106); POTASSIUM,K 3.9 mmol/L (3.5-5.1); SODIUM,NA 139 mmol/L (136-148)
--- NOTE | 2019-11-26 20:10 | EDM.PDOC ---
ED HPI GENERAL MEDICAL PROBLEM - General Chief Complaint: General Stated Complaint: SLURRING WORDS Time Seen by Provider: 11/26/19 19:00 - History of Present Illness INITIAL COMMENTS - FREE TEXT/NARRATIVE: HISTORY AND PHYSICAL: History of present illness: This is a 69-year-old gentleman with a history significant for hypertension, diabetes, CAD status post stent several years ago who presents ER today secondary to slurred speech and difficulty with word finding that occurred earlier today. Patient's last known well according to the is 4 PM this evening. reports that at around 530 she noticed that he was having slurring the speech after making dinner. 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 Patient denies any recent fevers, shakes, chills, nausea, vomiting, diarrhea, dysuria, frequency, urgency, chest pain, shortness of breath, abdominal pain. Patient h as been tolerating p.o.'s well without any difficulty. Patient denies any weakness to his upper or lower extremities. reports no facial droop identified. Upon my evaluation the ED, the patient appears to be in good spirits and reports that he is asymptomatic. Patient does recall the episode of difficulty speaking. Review of systems: As per history of present illness and below otherwise all systems reviewed and negative. Past medical history: As per history of present illness and as reviewed below otherwise noncontributory. Surgical history: As per history of present illness and as reviewed below otherwise noncontributory. Social history: No reported history of drug or alcohol abuse. Family history: As per history of present illness and as reviewed below otherwise noncont ributory. Physical exam: HEENT: Atraumatic, normocephalic, pupils reactive, negative for conjunctival pallor or scleral icterus, mucous membranes moist, throat clear, neck supple, nontender, trachea midline. Lungs: Clear to auscultation, breath sounds equal bilaterally, chest nontender. Heart: S1S2, regular, negative for clicks, rubs, or JVD. Abdomen: Soft, nondistended, nontender. Negative for masses or hepatosplenomegaly. Negative for costovertebral tenderness. Pelvis: Stable nontender. Genitourinary: Deferred. Rectal: Deferred. Extremities: Atraumatic, negative for cords or calf pain. Neurovascular unremarkable. Neuro: Awake, alert, oriented. Cranial nerves II through XII unremarkable. Cerebellum unremarkable. Motor and sensory unremarkable throughout. Exam nonfocal. Diagnostics: 1a) Level of consciousness: 0=alert; 1=not alert but arousable by minor stimulation; 2=not alert: requires repeated stimulation to attend or is obtunded and requires strong or painful stimulation to make movements; 3=responds only with reflex motor or autonomic effects or totally unresponsive, flaccid and areflexic SCORE 0 1b) LOC questions ("what month is it?", "how old are you?"): 0=answers both correctly; 1=answers one correctly; 2=answers neither correctly SCORE 0 1c) LOC commands (command patient to "open and close your eyes. English Language Arts Teacher and release your hand.): 0=performs both correctly; 1=performs one correctly; 2=performs neither correctly SCORE 0 2) Best gaze ("follow my finger"): 0=normal; 1=partial gaze palsy; 2=forced deviation or total gaze paresis SCORE 0 3) Visual mas (use confrontation, finger counting, or visual threat. confront upper/lower quadrants of visual field): 0=no visual loss; 1=partial hemianopsia; 2=complete hemianopsia; 3=bilateral hemianopsia SCORE 0 4) Facial palsy (by words or pantomime, encourage patient to: "Show me your teeth. Raise your eyebrows. Close your eyes."): 0=normal symmetrical movement; 1=minor paralysis (flattened nasolabial fold, asymmetry on smiling); 2=partial paralysis (lower face); 3=complete paralysis SCORE 0 5) Arm motor (alternately position patient's arms. extend each arm with palms down [90 degrees if sitting, 45 degrees if supine] - test each arm in turn and start with nonparetic arm first): 0=no drift; 1=drift (arm falls before 10 seconds); 2=some effort vs. gravity; 3=no effort vs. gravity; 4=no movement; UN (untestable)=amputation or joint fusion SCORE 0 6) Leg motor (alternately position patient's legs. extend each leg [30 degrees, always while supine] - test nonparetic leg first): 0=no drift; 1=drift (leg falls before 5 seconds); 2=some effort vs. gravity; 3= no effort vs. gravity; 4=no movement; UN=amputation or joint fusion SCORE 0 7) Limb ataxia (ask patient [eyes open] to: "touch your finger to your nose. touch your heel to your elkins"): 0=absent; 1=present in one limb; 2=present in two or more limbs; UN=amputation or joint fusion SCORE 0 8) Sensory (test as many body parts as possible [arms and not hands, legs, trunk, face] for sensation using pinprick or noxious stimuli [in the obtunded or aphasic patient]): 0=normal; 1=mild to moderate sensory loss; 2=severe to total sensory loss SCORE 0 9) Best language (using pictures and a sentence list, ask patient to "describe what you see in this picture. Name the items in this picture. Read these sentences"): 0=no aphasia, 1=mild to moderate aphasia; 2=severe aphasia; 3=mute, global aphasia SCORE 0 10) Dysarthria (using a simple word list, ask patient to: "read these words" or "repeat these words"): 0=normal articulation; 1=mild to moderate dysarthria; 2=severe dysarthria; UN=intubated or other physical barrier SCORE 0 11) Extinction and inattention (sufficient information to determine these scores may have been obtained during the prior testing): 0=no abnormality; 1=visual, tactile, auditory, spatial or personal inattention; 2=profound marlon-inattention or extinction to more than one modality SCORE 0 TOTAL NIHSS Score: 0 EKG: Normal sinus rhythm heart rate of [address]-T wave abnormalities Normal axis No evidence of ST elevation LA As interpreted by ER physician: Jordan Chest Xray: Normal cardiac silhouette No infiltrates or effusions identified. No PTX No evidence of acute bony fracture. As interpreted by ER MD: Jordan CT head: No evidence of acute bleed or infarct. Questionable hyperdensity in the right MCA (patient incidentally did not have any complaints of weakness to his left side noted by himself or his family). Assessment and plan: This is a 69-year-old gentleman who presents ER today with slurring in his speech as well as garbled speech and dysarthria that resolved upon arrival. Patient's last known well was 4 PM. Stroke called was called in the ED and patient had a CT scan of his head. Patient's head CT did not reveal any acute pathology. Patient symptoms were completely resolved upon my evaluation of the patient. Patient speech currently is back to baseline as confirmed by myself his and his son. Patient's cranial nerves II to XII are intact. Patient does have some slight right-sided facial asymmetry however reports that is normal since he had his dental extraction done 3 weeks ago. Patient will be admitted to observation telemetry for further evaluation and assessment of his stroke/TIA. Case discussed with Dr. Foy who is agreed to assist with further observation care of the patient. Definitive disposition and diagnosis as appropriate pending reevaluation and review of above. Headache Pain Score (Numeric/FACES): 3 - Related Data Allergies Allergy/AdvReac Type Severity Reaction Status Date / Time ibuprofen [From Motrin] Allergy Hives Verified 11/26/19 18:58 lisinopril Allergy Cannot Verified 11/26/19 18:58 Remember Home Meds: Home Meds Clopidogrel [Plavix] 75 mg PO DAILY 10/18/13 [History] Metoprolol Succinate [Toprol XL] 25 mg PO DAILY 10/18/13 [History] Simvastatin [Zocor] 80 mg PO BEDTIME 10/18/13 [History] metFORMIN [Glucophage] 1,000 mg PO DAILY 10/18/13 [History] Escitalopram [Lexapro] 20 mg PO BEDTIME 04/13/17 [History] Famotidine 40 mg PO DAILY 04/13/17 [History] Empagliflozin [Jardiance] 10 mg PO DAILY 04/15/19 [History] Past Medical History HEENT History: Reports: Impaired Vision Other HEENT History: wears glasses Cardiovascular History: Reports: Hypertension, LA, Stents Gastrointestinal History: Reports: GERD Psychiatric History: Reports: Depression Endocrine/Metabolic History: Reports: Diabetes, Type II - Infectious Disease History Infectious Disease History: Reports: None - Past Surgical History Cardiovascular Surgical History: Reports: Coronary Artery Stent GI Surgical History: Reports: Appendectomy, Hernia Repair/Other Social & Family History - Family History Family Medical History: Noncontributory - Tobacco Use Smoking Status *Q: Never Smoker Second Hand Smoke Exposure: No - Caffeine Use Caffeine Use: Reports: Soda - Recreational Drug Use Recreational Drug Use: No ED ROS GENERAL - Review of Systems Review Of Systems: See Below ED EXAM, GENERAL - Physical Exam Exam: See Below Course - Vital Signs Last Recorded V/S: Last Vital Signs Temp 96.3 F L 11/26/19 19:00 Pulse 72 11/26/19 19:00 Resp 15 11/26/19 19:00 BP 149/88 H 11/26/19 19:00 Pulse Ox 96 11/26/19 19:00 - Orders/Labs/Meds Orders: Active Orders 24 hr Category Date Time Status Assess Neurological Status [RC] ASDIRECTED Care 11/26/19 19:26 Active Bedrest [RC] ASDIRECTED Care 11/26/19 19:26 Active Blood Glucose Check, Bedside [RC] ONETIME Care 11/26/19 19:26 Active Cardiac Monitoring [RC] . DIRECTED Care 11/26/19 19:26 Active EKG Documentation Completion [RC] STAT Care 11/26/19 19:26 Active Height and Weight [RC] UPON Care 11/26/19 19:26 Active Initiate Acute Stroke Protocol [RC] STAT Care 11/26/19 19:26 Active NIH Stroke Scale [RC] ASDIRECTED Care 11/26/19 19:26 Active Nursing Bedside Swallow Screen [RC] ASDIRECTED Care 11/26/19 19:26 Active Oxygen Therapy [RC] ASDIRECTED Care 11/26/19 19:26 Active Stroke Education, General [RC] Click to Edit Care 11/26/19 19:26 Active Vital Signs [RC] Q15M Care 11/26/19 19:26 Active Sodium Chloride 0.9% [Normal Saline] Med 11/26/19 19:26 Active 10 ml IV ASDIRECTED PRN Sodium Chloride 0.9% [Normal Saline] 1,000 ml Med 11/26/19 19:26 Active IV NOW Sodium Chloride 0.9% [Saline Flush] Med 11/26/19 19:26 Active 10 ml FLUSH ASDIRECTED PRN Sodium Chloride 0.9% [Saline Flush] Med 11/26/19 19:26 Active 2.5 ml FLUSH ASDIRECTED PRN Peripheral IV Insertion Adult [OM.PC] Stat Oth 11/26/19 19:26 Ordered Peripheral IV Insertion Adult [OM.PC] Stat Oth 11/26/19 19:26 Ordered Resuscitation Status Stat Resus Stat 11/26/19 19:26 Ordered Medication Orders Sodium Chloride (Normal Saline) 1,000 mls @ 125 mls/hr IV NOW STA Stop: 11/27/19 03:25 Last Admin: 11/26/19 19:42 Dose: 125 mls/hr Documented by: [id number] Sodium Chloride (Saline Flush) 10 ml FLUSH ASDIRECTED PRN PRN Reason: Keep Vein Open Last Admin: 11/26/19 19:43 Dose: 10 ml Documented by: [id number] Sodium Chloride (Saline Flush) 2.5 ml FLUSH ASDIRECTED PRN PRN Reason: Keep Vein Open Last Admin: 11/26/19 19:43 Dose: 2.5 ml Documented by: [id number] Sodium Chloride (Normal Saline) 10 ml IV ASDIRECTED PRN PRN Reason: IV Use Labs: Laboratory Tests 11/26/19 11/26/19 11/26/19 Range/Units 19:19 19:25 19:25 WBC 18.08 H (4.0-11.0) K/uL RBC 4.71 (4.50-5.90) M/uL Hgb 14.1 (13.0-17.0) g/dL Hct 43.9 (38.0-50.0) % MCV 93.2 (80.0-98.0) fL MCH 29.9 (27.0-32.0) pg MCHC 32.1 (31.0-37.0) g/dL RDW Std Deviation 47.2 (28.0-62.0) fl RDW Coeff of Jose Enrique 14 (11.0-15.0) % Plt Count 332 (150-400) K/uL MPV 11.30 (7.40-12.00) fL Neut % (Auto) 79.9 (48.0-80.0) % Lymph % (Auto) 12.4 L (16.0-40.0) % Hayes % (Auto) 6.4 (0.0-15.0) % Eos % (Auto) 1.1 (0.0-7.0) % Baso % (Auto) 0.2 (0.0-1.5) % Neut # (Auto) 14.4 H (1.4-5.7) K/uL Lymph # (Auto) 2.2 (0.6-2.4) K/uL Hayes # (Auto) 1.2 H (0.0-0.8) K/uL Eos # (Auto) 0.2 (0.0-0.7) K/uL Baso # (Auto) 0.0 (0.0-0.1) K/uL Nucleated RBC % 0.0 /100WBC Nucleated RBCs # 0 K/uL INR 1.05 APTT 23.6 (18.6-31.3) SEC Sodium (136-148) mmol/L Potassium (3.5-5.1) mmol/L Chloride (98-107) mmol/L Carbon Dioxide (21.0-32.0) mmol/L BUN (7.0-18.0) mg/dL Creatinine (0.8-1.3) mg/dL Est Cr Clr Drug Dosing mL/min Estimated GFR (MDRD) ml/min Glucose (74-106) mg/dL POC Glucose 117 H (60-110) mg/dL Calcium (8.5-10.1) mg/dL Total Bilirubin (0.2-1.0) mg/dL AST (15-37) IU/L ALT (14-63) IU/L Alkaline Phosphatase (46-116) U/L Troponin I (0.000-0.056) ng/mL Total Protein (6.4-8.2) g/dL Albumin (3.4-5.0) g/dL Globulin (2.6-4.0) g/dL Albumin/Globulin Ratio (0.9-1.6) TSH 3rd Generation (0.36-3.74) uIU/mL Urine Color Urine Appearance Urine pH (5.0-8.0) Ur Specific [place] (1.001-1.035) Urine Protein (NEGATIVE) mg/dL Urine Glucose (UA) (NEGATIVE) mg/dL Urine Ketones (NEGATIVE) mg/dL Urine Occult Blood (NEGATIVE) Urine Nitrite (NEGATIVE) Urine Bilirubin (NEGATIVE) Urine Urobilinogen (<2.0) EU/dL Ur Leukocyte Esterase (NEGATIVE) Urine RBC (0-2/HPF) Urine WBC (0-5/HPF) Ur Epithelial Cells (NONE-FEW) Urine Bacteria (NEGATIVE) Ethyl Alcohol mg/dL 11/26/19 11/26/19 Range/Units 19:25 20:23 WBC (4.0-11.0) K/uL RBC (4.50-5.90) M/uL Hgb (13.0-17.0) g/dL Hct (38.0-50.0) % MCV (80.0-98.0) fL MCH (27.0-32.0) pg MCHC (31.0-37.0) g/dL RDW Std Deviation (28.0-62.0) fl RDW Coeff of Jose Enrique (11.0-15.0) % Plt Count (150-400) K/uL MPV (7.40-12.00) fL Neut % (Auto) (48.0-80.0) % Lymph % (Auto) (16.0-40.0) % Hayes % (Auto) (0.0-15.0) % Eos % (Auto) (0.0-7.0) % Baso % (Auto) (0.0-1.5) % Neut # (Auto) (1.4-5.7) K/uL Lymph # (Auto) (0.6-2.4) K/uL Hayes # (Auto) (0.0-0.8) K/uL Eos # (Auto) (0.0-0.7) K/uL Baso # (Auto) (0.0-0.1) K/uL Nucleated RBC % /100WBC Nucleated RBCs # K/uL INR APTT (18.6-31.3) SEC Sodium 139 (136-148) mmol/L Potassium 3.9 (3.5-5.1) mmol/L Chloride 104 (98-107) mmol/L Carbon Dioxide 20.4 L (21.0-32.0) mmol/L BUN 10 (7.0-18.0) mg/dL Creatinine 1.1 (0.8-1.3) mg/dL Est Cr Clr Drug Dosing 52.32 mL/min Estimated GFR (MDRD) > 60.0 ml/min Glucose 129 H (74-106) mg/dL POC Glucose (60-110) mg/dL Calcium 9.0 (8.5-10.1) mg/dL Total Bilirubin 0.2 (0.2-1.0) mg/dL AST 24 (15-37) IU/L ALT 25 (14-63) IU/L Alkaline Phosphatase 61 (46-116) U/L Troponin I < 0.050 (0.000-0.056) ng/mL Total Protein 7.2 (6.4-8.2) g/dL Albumin 3.9 (3.4-5.0) g/dL Globulin 3.3 (2.6-4.0) g/dL Albumin/Globulin Ratio 1.2 (0.9-1.6) TSH 3rd Generation 1.07 (0.36-3.74) uIU/mL Urine Color YELLOW Urine Appearance HAZY Urine pH 5.0 (5.0-8.0) Ur Specific [place] >= 1.030 (1.001-1.035) Urine Protein TRACE H (NEGATIVE) mg/dL Urine Glucose (UA) NEGATIVE (NEGATIVE) mg/dL Urine Ketones TRACE H (NEGATIVE) mg/dL Urine Occult Blood NEGATIVE (NEGATIVE) Urine Nitrite NEGATIVE (NEGATIVE) Urine Bilirubin NEGATIVE (NEGATIVE) Urine Urobilinogen 0.2 (<2.0) EU/dL Ur Leukocyte Esterase NEGATIVE (NEGATIVE) Urine RBC 0-2 (0-2/HPF) Urine WBC 0-2 (0-5/HPF) Ur Epithelial Cells RARE (NONE-FEW) Urine Bacteria RARE (NEGATIVE) Ethyl Alcohol <3 mg/dL Meds: Medications Generic Name Dose Route Start Last Admin Trade Name Freq PRN Reason Stop Dose Admin Sodium Chloride 1,000 mls @ 125 mls/hr 11/26/19 19:26 11/26/19 19:42 Normal Saline IV 11/27/19 03:25 125 mls/hr NOW STA Administration Sodium Chloride 10 ml 11/26/19 19:26 11/26/19 19:43 Saline Flush FLUSH 10 ml ASDIRECTED PRN Administration Keep Vein Open Sodium Chloride 2.5 ml 11/26/19 19:26 11/26/19 19:43 Saline Flush FLUSH 2.5 ml ASDIRECTED PRN Administration Keep Vein Open Sodium Chloride 10 ml 11/26/19 19:26 Normal Saline IV ASDIRECTED PRN IV Use Departure - Departure Time of Disposition: 20:42 Disposition: Home, Self-Care 01 Clinical Impression: CVA, Cerebrovascular accident, TIA (transient ischemic attack) - Discharge Information Referrals: David Gray MD [Primary Care Provider] - Forms: ED Department Discharge Sepsis Event Note (ED) - Evaluation Sepsis Screening Result: No Definite Risk - Focused Exam Vital Signs: Vital Signs Temp Pulse Resp BP Pulse Ox 11/26/19 19:00 96.3 F L 72 15 149/88 H 96 - My Orders Last 24 Hours: My Active Orders 11/26/19 19:26 Assess Neurological Status [RC] ASDIRECTED Bedrest [RC] ASDIRECTED Blood Glucose Check, Bedside [RC] ONETIME Cardiac Monitoring [RC] . DIRECTED EKG Documentation Completion [RC] STAT Height and Weight [RC] UPON Initiate Acute Stroke Protocol [RC] STAT NIH Stroke Scale [RC] ASDIRECTED Nursing Bedside Swallow Screen [RC] ASDIRECTED Oxygen Therapy [RC] ASDIRECTED Stroke Education, General [RC] Click to Edit Vital Signs [RC] Q15M Sodium Chloride 0.9% [Normal Saline] 10 ml IV ASDIRECTED PRN Sodium Chloride 0.9% [Normal Saline] 1,000 ml IV NOW Sodium Chloride 0.9% [Saline Flush] 10 ml FLUSH ASDIRECTED PRN Sodium Chloride 0.9% [Saline Flush] 2.5 ml FLUSH ASDIRECTED PRN Peripheral IV Insertion Adult [OM.PC] Stat Peripheral IV Insertion Adult [OM.PC] Stat Resuscitation Status Stat - Assessment/Plan Last 24 Hours: My Active Orders 11/26/19 19:26 Assess Neurological Status [RC] ASDIRECTED Bedrest [RC] ASDIRECTED Blood Glucose Check, Bedside [RC] ONETIME Cardiac Monitoring [RC] . DIRECTED EKG Documentation Completion [RC] STAT Height and Weight [RC] UPON Initiate Acute Stroke Protocol [RC] STAT NIH Stroke Scale [RC] ASDIRECTED Nursing Bedside Swallow Screen [RC] ASDIRECTED Oxygen Therapy [RC] ASDIRECTED Stroke Education, General [RC] Click to Edit Vital Signs [RC] Q15M Sodium Chloride 0.9% [Normal Saline] 10 ml IV ASDIRECTED PRN Sodium Chloride 0.9% [Normal Saline] 1,000 ml IV NOW Sodium Chloride 0.9% [Saline Flush] 10 ml FLUSH ASDIRECTED PRN Sodium Chloride 0.9% [Saline Flush] 2.5 ml FLUSH ASDIRECTED PRN Peripheral IV Insertion Adult [OM.PC] Stat Peripheral IV Insertion Adult [OM.PC] Stat Resuscitation Status Stat
--- NOTE | 2019-11-26 20:15 | CT ---
INDICATION: stroke code CT HEAD WITHOUT CONTRAST TECHNIQUE: Multiple axial CT images were performed through the head without intravenous contrast administration. COMPARISON: No previous studies are currently available for comparison. FINDINGS: No acute intracranial hemorrhage is identified. No extra-axial collections are evident and there is no mass effect or midline shift. There is mild diffuse age-related brain atrophy. Ventricular size and configuration are within normal limits for the patient`s age. Garrett-white differentiation is within normal limits. There is mild patchy hypodensity in the periventricular white matter, a nonspecific finding which most likely reflects chronic small vessel ischemic change. There is a question of subtle hyperdensity of the M1 segment of the right middle cerebral artery, as on image 21 of series 201 and image 25 of series 203, potentially representing intraluminal thrombus. Osseous structures are within normal limits and no fractures are seen. Included portions of the paranasal sinuses and mastoid air cells are normally aerated aside from mild mucosal thickening in the inferior left maxillary sinus. IMPRESSION: 1. Questionable subtle hyperdensity of the right MCA, as noted above. Clinical correlation is suggested. 2. Mild age-related brain atrophy and white matter hypodensity consistent with chronic small vessel ischemic change. Results were called to Dr. Ortega at 8:10 p.m. on 11/26/2019. ALYSON LUGO MD [employer] [employer] Dictated by Brandan Lugo MD @ 11/26/2019 8:11:50 PM Dictated by: Brandan Lugo MD @ 11/26/2019 20:14:56 (Electronically Signed)
[2019-11-26] MEDS ORDERED: Aspirin 81 MG Tab.Chew PO SCH (21:00)
[2019-11-26] MEDS ORDERED: atorvaSTATin 40 MG Tab PO SCH (21:00)
[2019-11-26] MEDS ORDERED: Albuterol/Ipratropium 3.0-0.5 MG/3 ML Neb Soln NEB PRN (21:12)
[2019-11-26] MEDS ORDERED: Acetaminophen 325 MG Tab PO PRN (21:12)
[2019-11-26] MEDS ORDERED: Aspirin 81 MG Tab.Chew PO ONE (21:29)
--- NOTE | 2019-11-26 21:42 | PCM.HP.2 ---
H&P History of Present Illness - General Date of Service: 11/26/19 Admit Problem/Dx: Admission Diagnosis/Problem Admission Diagnosis/Problem Stroke of unknown etiology Source of Information: Patient - History of Present Illness Initial Comments - Free Text/Narative: This is a 69-year-old gentleman with a history significant for hypertension, diabetes, CAD status post stent in 2007 who presents ER today secondary to slurred speech and difficulty with word finding that occurred earlier today. Per reports around 530pm patients noticed that he was having slurring the speech after making dinner. 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 Patient denies any recent fevers, shakes, chills, nausea, vomiting, diarrhea, dysuria, frequency, urgency, chest pain, shortness of breath, abdominal pain. Patient has been tolerating p.o.'s well without any difficulty. Patient denies any weakness to his upper or lower extremities, no reported facial droop. In the ER vitals were acceptable, lab work showed leucocytosis but no sepsis. Patient symptoms has resolved by the time he reached the ER as confirmed by the family to ER physician. CT head: No evidence of acute bleed or infarct. Questionable hyperdensity in the right MCA (patient incidentally did not have any complaints of weakness to his left side noted by himself or his family), Patient is being admitted for Stroke work up. Headache Pain Score (Numeric/FACES): 3 - Related Data Allergies/Adverse Reactions: Allergies Allergy/AdvReac Type Severity Reaction Status Date / Time ibuprofen [From Motrin] Allergy Hives Verified 11/26/19 18:58 lisinopril Allergy Cannot Verified 11/26/19 18:58 Remember Home Medications: Home Meds Clopidogrel [Plavix] 75 mg PO DAILY 10/18/13 [History] Metoprolol Succinate [Toprol XL] 25 mg PO DAILY 10/18/13 [History] Simvastatin [Zocor] 80 mg PO BEDTIME 10/18/13 [History] metFORMIN [Glucophage] 1,000 mg PO DAILY 10/18/13 [History] Escitalopram [Lexapro] 20 mg PO BEDTIME 04/13/17 [History] Famotidine 40 mg PO DAILY 04/13/17 [History] Empagliflozin [Jardiance] 10 mg PO DAILY 04/15/19 [History] Past Medical History HEENT History: Reports: Impaired Vision Other HEENT History: wears glasses Cardiovascular History: Reports: Hypertension, OK, Stents Gastrointestinal History: Reports: GERD Psychiatric History: Reports: Depression Endocrine/Metabolic History: Reports: Diabetes, Type II - Infectious Disease History Infectious Disease History: Reports: None - Past Surgical History Cardiovascular Surgical History: Reports: Coronary Artery Stent GI Surgical History: Reports: Appendectomy, Hernia Repair/Other Social & Family History - Family History Family Medical History: Noncontributory - Tobacco Use Smoking Status *Q: Never Smoker Second Hand Smoke Exposure: No - Caffeine Use Caffeine Use: Reports: Soda - Recreational Drug Use Recreational Drug Use: No H&P Review of Systems - Review of Systems: Review Of Systems: See Below General: Denies: Fever, Malaise, Weakness, Weight Loss HEENT: Denies: Contact Lenses, Dysphasia, Ear Pain Pulmonary: Denies: Shortness of Breath, Wheezing, Pleuritic Chest Pain Cardiovascular: Denies: Chest Pain, Palpitations, Dyspnea on Exertion Gastrointestinal: Denies: Abdominal Pain, Anorexia, Black Stool Genitourinary: Denies: Dysuria, Frequency, Burning Musculoskeletal: Denies: Neck Pain, Shoulder Pain, Arm Pain Skin: Denies: Cyanosis, Jaundice, Mottled Exam - Exam Exam: See Below - Vital Signs Vital Signs: Last Vital Signs Temp 36.3 C 11/26/19 20:40 Pulse 91 11/26/19 21:13 Resp 18 11/26/19 21:13 BP 135/94 H 11/26/19 21:13 Pulse Ox 93 L 11/26/19 21:13 Weight: 97.97 kg - Exam Quality Assessment: No: Supplemental Oxygen General: Alert, Oriented, Cooperative Neck: Supple, Trachea Midline Lungs: Clear to Auscultation, Normal Respiratory Effort Cardiovascular: Regular Rate, Regular Rhythm, Normal S1, Normal S2 GI/Abdominal Exam: Normal Bowel Sounds, Soft, Non-Tender Extremities: Normal Inspection, Normal Range of Motion, Non-Tender Neurological: Cranial Nerves Intact, Reflexes Equal Bilateral, Strength Equal Bilateral, Normal Gait, Normal Speech, Normal Tone, Sensation Intact. No: Focal Deficit Neuro Extensive - Mental Status: Alert, Oriented x3, Normal Mood/Affect Neuro Extensive - Motor, Sensory, Reflexes: CN II-XII Intact, Normal Gait, Normal Reflexes. No: Receptive Aphasia, Expressive Aphasia, Facial Palsy wo Forehead, Pronator Drift (R), Pronator Drift (L) - Patient Data Lab Results Last 24 hrs: Laboratory Results - last 24 hr 11/26/19 11/26/19 11/26/19 Range/Units 19:19 19:25 19:25 WBC 18.08 H (4.0-11.0) K/uL RBC 4.71 (4.50-5.90) M/uL Hgb 14.1 (13.0-17.0) g/dL Hct 43.9 (38.0-50.0) % MCV 93.2 (80.0-98.0) fL MCH 29.9 (27.0-32.0) pg MCHC 32.1 (31.0-37.0) g/dL RDW Std Deviation 47.2 (28.0-62.0) fl RDW Coeff of Jose Enrique 14 (11.0-15.0) % Plt Count 332 (150-400) K/uL MPV 11.30 (7.40-12.00) fL Neut % (Auto) 79.9 (48.0-80.0) % Lymph % (Auto) 12.4 L (16.0-40.0) % [place] % (Auto) 6.4 (0.0-15.0) % Eos % (Auto) 1.1 (0.0-7.0) % Baso % (Auto) 0.2 (0.0-1.5) % Neut # (Auto) 14.4 H (1.4-5.7) K/uL Lymph # (Auto) 2.2 (0.6-2.4) K/uL [place] # (Auto) 1.2 H (0.0-0.8) K/uL Eos # (Auto) 0.2 (0.0-0.7) K/uL Baso # (Auto) 0.0 (0.0-0.1) K/uL Nucleated RBC % 0.0 /100WBC Nucleated RBCs # 0 K/uL INR 1.05 APTT 23.6 (18.6-31.3) SEC Sodium (136-148) mmol/L Potassium (3.5-5.1) mmol/L Chloride (98-107) mmol/L Carbon Dioxide (21.0-32.0) mmol/L BUN (7.0-18.0) mg/dL Creatinine (0.8-1.3) mg/dL Est Cr Clr Drug Dosing mL/min Estimated GFR (MDRD) ml/min Glucose (74-106) mg/dL POC Glucose 117 H (60-110) mg/dL Calcium (8.5-10.1) mg/dL Total Bilirubin (0.2-1.0) mg/dL AST (15-37) IU/L ALT (14-63) IU/L Alkaline Phosphatase (46-116) U/L Troponin I (0.000-0.056) ng/mL Total Protein (6.4-8.2) g/dL Albumin (3.4-5.0) g/dL Globulin (2.6-4.0) g/dL Albumin/Globulin Ratio (0.9-1.6) TSH 3rd Generation (0.36-3.74) uIU/mL Urine Color Urine Appearance Urine pH (5.0-8.0) Ur Specific [place] (1.001-1.035) Urine Protein (NEGATIVE) mg/dL Urine Glucose (UA) (NEGATIVE) mg/dL Urine Ketones (NEGATIVE) mg/dL Urine Occult Blood (NEGATIVE) Urine Nitrite (NEGATIVE) Urine Bilirubin (NEGATIVE) Urine Urobilinogen (<2.0) EU/dL Ur Leukocyte Esterase (NEGATIVE) Urine RBC (0-2/HPF) Urine WBC (0-5/HPF) Ur Epithelial Cells (NONE-FEW) Urine Bacteria (NEGATIVE) Ethyl Alcohol mg/dL COVID-19 (LYNDA) (NEGATIVE) 11/26/19 11/26/19 11/26/19 Range/Units 19:25 20:23 21:17 WBC (4.0-11.0) K/uL RBC (4.50-5.90) M/uL Hgb (13.0-17.0) g/dL Hct (38.0-50.0) % MCV (80.0-98.0) fL MCH (27.0-32.0) pg MCHC (31.0-37.0) g/dL RDW Std Deviation (28.0-62.0) fl RDW Coeff of Jose Enrique (11.0-15.0) % Plt Count (150-400) K/uL MPV (7.40-12.00) fL Neut % (Auto) (48.0-80.0) % Lymph % (Auto) (16.0-40.0) % [place] % (Auto) (0.0-15.0) % Eos % (Auto) (0.0-7.0) % Baso % (Auto) (0.0-1.5) % Neut # (Auto) (1.4-5.7) K/uL Lymph # (Auto) (0.6-2.4) K/uL [place] # (Auto) (0.0-0.8) K/uL Eos # (Auto) (0.0-0.7) K/uL Baso # (Auto) (0.0-0.1) K/uL Nucleated RBC % /100WBC Nucleated RBCs # K/uL INR APTT (18.6-31.3) SEC Sodium 139 (136-148) mmol/L Potassium 3.9 (3.5-5.1) mmol/L Chloride 104 (98-107) mmol/L Carbon Dioxide 20.4 L (21.0-32.0) mmol/L BUN 10 (7.0-18.0) mg/dL Creatinine 1.1 (0.8-1.3) mg/dL Est Cr Clr Drug Dosing 52.32 mL/min Estimated GFR (MDRD) > 60.0 ml/min Glucose 129 H (74-106) mg/dL POC Glucose (60-110) mg/dL Calcium 9.0 (8.5-10.1) mg/dL Total Bilirubin 0.2 (0.2-1.0) mg/dL AST 24 (15-37) IU/L ALT 25 (14-63) IU/L Alkaline Phosphatase 61 (46-116) U/L Troponin I < 0.050 (0.000-0.056) ng/mL Total Protein 7.2 (6.4-8.2) g/dL Albumin 3.9 (3.4-5.0) g/dL Globulin 3.3 (2.6-4.0) g/dL Albumin/Globulin Ratio 1.2 (0.9-1.6) TSH 3rd Generation 1.07 (0.36-3.74) uIU/mL Urine Color YELLOW Urine Appearance HAZY Urine pH 5.0 (5.0-8.0) Ur Specific [place] >= 1.030 (1.001-1.035) Urine Protein TRACE H (NEGATIVE) mg/dL Urine Glucose (UA) NEGATIVE (NEGATIVE) mg/dL Urine Ketones TRACE H (NEGATIVE) mg/dL Urine Occult Blood NEGATIVE (NEGATIVE) Urine Nitrite NEGATIVE (NEGATIVE) Urine Bilirubin NEGATIVE (NEGATIVE) Urine Urobilinogen 0.2 (<2.0) EU/dL Ur Leukocyte Esterase NEGATIVE (NEGATIVE) Urine RBC 0-2 (0-2/HPF) Urine WBC 0-2 (0-5/HPF) Ur Epithelial Cells RARE (NONE-FEW) Urine Bacteria RARE (NEGATIVE) Ethyl Alcohol <3 mg/dL COVID-19 (LYNDA) NEGATIVE (NEGATIVE) Result Diagrams: 11/26/19 19:25 11/26/19 19:25 Sepsis Event Note - Evaluation Sepsis Screening Result: No Definite Risk - Focused Exam Vital Signs: Vital Signs Temp Pulse Resp BP Pulse Ox Pulse Ox 11/26/19 21:13 91 18 135/94 H 93 L 11/26/19 20:51 88 20 145/84 H 92 L 11/26/19 20:40 36.3 C 88 20 136/89 97 11/26/19 20:29 88 20 154/92 H 95 11/26/19 20:15 93 16 135/79 93 L 11/26/19 19:59 85 22 H 142/86 H 92 L 11/26/19 19:44 81 23 H 151/93 H 94 L 11/26/19 19:41 81 16 152/88 H 95 11/26/19 19:16 95 11/26/19 19:15 24 H 155/90 H 92 L 11/26/19 19:00 35.7 C L 72 15 149/88 H 96 - Problem List (1) TIA (transient ischemic attack) SNOMED Code(s): 786253471 ICD Code: G45.9 - TRANSIENT CEREBRAL ISCHEMIC ATTACK, UNSPECIFIED Status: Acute Current Visit: Yes (2) DMII (diabetes mellitus, type 2) SNOMED Code(s): 08286047 ICD Code: E11.9 - TYPE 2 DIABETES MELLITUS WITHOUT COMPLICATIONS Status: Chronic Priority: Medium Current Visit: No Qualifiers: Diabetes mellitus intermediate accountant insulin use: without intermediate accountant use Diabetes mellitus complication status: without complication Qualified Code(s): E11.9 - Type 2 diabetes mellitus without complications (3) History of OK (myocardial infarction) SNOMED Code(s): 610628922 ICD Code: I25.2 - OLD MYOCARDIAL INFARCTION Status: Chronic Priority: Low Current Visit: No (4) Hyperlipidemia SNOMED Code(s): 56239177 ICD Code: E78.5 - HYPERLIPIDEMIA, UNSPECIFIED Status: Chronic Priority: Medium Current Visit: No Qualifiers: Hyperlipidemia type: unspecified Qualified Code(s): E78.5 - Hyperlipidemia, unspecified (5) Presence of stent in coronary artery in patient with coronary artery disease SNOMED Code(s): 848333111 ICD Code: I25.10 - ATHSCL HEART DISEASE OF [place] CORONARY ARTERY W/O ANG PCTRS; Z95.5 - PRESENCE OF CORONARY ANGIOPLASTY IMPLANT AND GRAFT Status: Chronic Priority: Low Current Visit: No Problem List Initiated/Reviewed/Updated: Yes Orders Last 24hrs: Active Orders 24 hr Category Date Time Status Patient Status [ADT] Routine ADT 11/26/19 20:43 Active Ambulate [RC] ASDIRECTED Care 11/26/19 21:12 Ordered Antiembolic Devices [RC] PER UNIT ROUTINE Care 11/26/19 21:13 Ordered Assess Neurological Status [RC] ASDIRECTED Care 11/26/19 19:26 Active Bedrest [RC] ASDIRECTED Care 11/26/19 19:26 Active Blood Glucose Check, Bedside [RC] ONETIME Care 11/26/19 19:26 Active Cardiac Monitoring [RC] . DIRECTED Care 11/26/19 19:26 Active EKG Documentation Completion [RC] STAT Care 11/26/19 19:26 Active Height and Weight [RC] UPON Care 11/26/19 19:26 Active Initiate Acute Stroke Protocol [RC] STAT Care 11/26/19 19:26 Active NIH Stroke Scale [RC] ASDIRECTED Care 11/26/19 19:26 Active Nursing Bedside Swallow Screen [RC] ASDIRECTED Care 11/26/19 19:26 Active Oxygen Therapy [RC] ASDIRECTED Care 11/26/19 19:26 Active Oxygen Therapy [RC] PRN Care 11/26/19 21:13 Ordered Pulse Oximetry [RC] PRN Care 11/26/19 21:13 Ordered RT Aerosol Therapy [RC] ASDIRECTED Care 11/26/19 21:14 Ordered Stroke Education, General [RC] Click to Edit Care 11/26/19 19:26 Active VTE/DVT Education [RC] PER UNIT ROUTINE Care 11/26/19 21:13 Ordered Vital Signs [RC] Q15M Care 11/26/19 19:26 Active Vital Signs [RC] Q4H Care 11/26/19 21:13 Ordered Heart Healthy Diet [DIET] Diet 11/26/19 Breakfast Ordered Ang Head wo Cont [MR] Routine Exams 11/26/19 21:33 Ordered Ang Neck w Cont [MR] Routine Exams 11/26/19 21:33 Ordered Brain w wo Cont [MR] Routine Exams 11/26/19 21:33 Ordered Echo Comp wo Cont [US] Routine Exams 11/26/19 21:38 Ordered VL Duplex Carotid Ltd Lt [US] Routine Exams 11/26/19 21:39 Ordered VL Duplex Carotid Ltd Rt [US] Routine Exams 11/26/19 21:39 Ordered CBC WITH AUTO DIFF [HEME] AM Lab 11/27/19 05:11 Ordered LIPID PANEL [CHEM] Routine Lab 11/26/19 21:41 Ordered MAGNESIUM [CHEM] AM Lab 11/27/19 05:11 Ordered PHOSPHORUS [CHEM] AM Lab 11/27/19 05:11 Ordered Acetaminophen [TylenoL] Med 11/26/19 21:12 Ordered 650 mg PO Q4H PRN Albuterol/Ipratropium [DuoNeb 3.0-0.5 MG/3 ML] Med 11/26/19 21:12 Ordered 3 ml NEB Q4HRRT PRN Clopidogrel [Plavix] Med 11/27/19 09:00 Ordered 75 mg PO DAILY Escitalopram [Lexapro] Med 11/27/19 21:00 Ordered 20 mg PO BEDTIME Famotidine [Famotidine] Med 11/27/19 09:00 Ordered 40 mg PO DAILY Insulin Aspart [NovoLOG] Med 11/27/19 07:30 Ordered See Protocol SUBCUT TIDAC Sodium Chloride 0.9% [Normal Saline] Med 11/26/19 19:26 Active 10 ml IV ASDIRECTED PRN Sodium Chloride 0.9% [Normal Saline] 1,000 ml Med 11/26/19 19:26 Active IV NOW Sodium Chloride 0.9% [Saline Flush] Med 11/26/19 19:26 Active 10 ml FLUSH ASDIRECTED PRN Sodium Chloride 0.9% [Saline Flush] Med 11/26/19 19:26 Active 2.5 ml FLUSH ASDIRECTED PRN atorvaSTATin [Lipitor] Med 11/26/19 21:00 Ordered 40 mg PO BEDTIME Peripheral IV Insertion Adult [OM.PC] Stat Oth 11/26/19 19:26 Ordered Peripheral IV Insertion Adult [OM.PC] Stat Oth 11/26/19 19:26 Ordered Sequential Compression Device [OM.PC] Per Unit Routine Ot 11/26/19 21:13 Ordered Resuscitation Status Stat Resus Stat 11/26/19 19:26 Ordered Medication Orders Acetaminophen (Tylenol) 650 mg PO Q4H PRN PRN Reason: Pain (Mild 1-3)/fever Albuterol/Ipratropium (Duoneb 3.0-0.5 Mg/3 Ml) 3 ml NEB Q4HRRT PRN PRN Reason: Shortness Of Breath/wheezing Atorvastatin Calcium (Lipitor) 40 mg PO BEDTIME ELLIE Clopidogrel Bisulfate (Plavix) 75 mg PO DAILY ELLIE Escitalopram Oxalate (Lexapro) 20 mg PO BEDTIME ELLIE Sodium Chloride (Normal Saline) 1,000 mls @ 125 mls/hr IV NOW STA Stop: 11/27/19 03:25 Last Admin: 11/26/19 19:42 Dose: 125 mls/hr Documented by: [id number] Insulin Aspart (Novolog) 0 unit SUBCUT TIDAC ELLIE; Protocol Non-Formulary Medication (Famotidine [Famotidine]) 40 mg PO DAILY ELLIE Sodium Chloride (Saline Flush) 10 ml FLUSH ASDIRECTED PRN PRN Reason: Keep Vein Open Last Admin: 11/26/19 19:43 Dose: 10 ml Documented by: [id number] Sodium Chloride (Saline Flush) 2.5 ml FLUSH ASDIRECTED PRN PRN Reason: Keep Vein Open Last Admin: 11/26/19 19:43 Dose: 2.5 ml Documented by: [id number] Sodium Chloride (Normal Saline) 10 ml IV ASDIRECTED PRN PRN Reason: IV Use Assessment/Plan Comment:: 69 y/o M admitted for confusion, slurred speech, symptoms resolved, no TPA administered CT head: No evidence of acute bleed or infarct. Questionable hyperdensity in the right MCA Admit to tele Allow permissive HTN MRI/MRA brain and neck 2D ECHO SCD for dvt ppx cont DAPT cont home meds, hold antihypertensives Neuro checks Q6H Check Lipids Leucocytosis likely reactive, no fever, recheck CBC in am
[2019-11-26] MEDS ORDERED: Escitalopram 10 MG Tab PO ONE (22:45)
[2019-11-26] MEDS ORDERED: Simvastatin 40 MG Tab PO ONE (23:15)
[2019-11-27] MEDS: Insulin Aspart 100 Units/ML 3 ML Pen SUBCUT SCH ×3 (07:55→17:43)
[2019-11-27] MEDS ORDERED: Clopidogrel 75 MG Tab PO SCH (09:00)
[2019-11-27] MEDS ORDERED: Aspirin 325 MG Tab PO SCH (09:00)
[2019-11-27] MEDS ORDERED: Famotidine 20 MG Tab PO SCH (09:00)
--- NOTE | 2019-11-27 10:31 | US ---
Carotid ultrasound: Multiple real-time images were obtained. Comparison: No prior carotid imaging. Technologist's note: Difficult scan, the vessels lie very deep Findings: Plaque: Minimal scattered plaque appears to be present. Velocity measurements: Right side: CCA has a peak systolic velocity of 0.93 m/s. ICA has a peak systolic velocity of 0.73 m/s and peak end-diastolic velocity of 0.24 m/s. ECA has a peak systolic velocity of 0.71 m/s. Right vertebral artery not visualized. ICA/CCA ratio is 0.79. Left side: CCA has a peak systolic velocity of 0.83 m/s. ICA has a peak systolic velocity of 0.44 m/s and peak end-diastolic velocity of 0.16 m/s. ECA has a peak systolic velocity of 0.59 m/s. Left vertebral artery not visualized. ICA/CCA ratio is 0.67. Impression: 1. Both vertebral arteries are not visualized. 2. Minimal scattered plaque is noted. 3. Velocity measurements within both internal carotid arteries correspond to stenosis in the range of 1-49 percent. Diagnostic code #3 This report was dictated in MDT
--- NOTE | 2019-11-27 10:46 | PCM.PN ---
- General Info Date of Service: 11/27/19 Subjective Update: Bedside: no acute complaints; denies any fevers, chills ,BA. Denies any weakness, CP, palpitations and or SOB . Functional Status: Reports: Pain Controlled - Review of Systems General: Reports: No Symptoms HEENT: Reports: No Symptoms Pulmonary: Reports: No Symptoms Cardiovascular: Reports: No Symptoms Gastrointestinal: Reports: No Symptoms Genitourinary: Reports: No Symptoms Musculoskeletal: Reports: No Symptoms Skin: Reports: No Symptoms Neurological: Reports: No Symptoms Psychiatric: Reports: No Symptoms - Patient Data Vitals - Most Recent: Last Vital Signs Temp 97.7 F 11/27/19 07:57 Pulse 84 11/27/19 04:00 Resp 18 11/27/19 07:57 BP 134/71 11/27/19 07:57 Pulse Ox 94 L 11/27/19 07:57 Weight - Most Recent: 97.97 kg I&O - Last 24 Hours: Intake & Output 11/26/19 11/27/19 11/27/19 22:59 06:59 14:59 Intake Total 600 Output Total 500 550 Balance 100 -550 Lab Results Last 24 Hours: Laboratory Results - last 24 hr 11/26/19 11/26/19 11/26/19 Range/Units 19:19 19:25 19:25 WBC 18.08 H (4.0-11.0) K/uL RBC 4.71 (4.50-5.90) M/uL Hgb 14.1 (13.0-17.0) g/dL Hct 43.9 (38.0-50.0) % MCV 93.2 (80.0-98.0) fL MCH 29.9 (27.0-32.0) pg MCHC 32.1 (31.0-37.0) g/dL RDW Std Deviation 47.2 (28.0-62.0) fl RDW Coeff of Jose Enrique 14 (11.0-15.0) % Plt Count 332 (150-400) K/uL MPV 11.30 (7.40-12.00) fL Neut % (Auto) 79.9 (48.0-80.0) % Lymph % (Auto) 12.4 L (16.0-40.0) % [place] % (Auto) 6.4 (0.0-15.0) % Eos % (Auto) 1.1 (0.0-7.0) % Baso % (Auto) 0.2 (0.0-1.5) % Neut # (Auto) 14.4 H (1.4-5.7) K/uL Lymph # (Auto) 2.2 (0.6-2.4) K/uL [place] # (Auto) 1.2 H (0.0-0.8) K/uL Eos # (Auto) 0.2 (0.0-0.7) K/uL Baso # (Auto) 0.0 (0.0-0.1) K/uL Nucleated RBC % 0.0 /100WBC Nucleated RBCs # 0 K/uL INR 1.05 APTT 23.6 (18.6-31.3) SEC Sodium (136-148) mmol/L Potassium (3.5-5.1) mmol/L Chloride (98-107) mmol/L Carbon Dioxide (21.0-32.0) mmol/L BUN (7.0-18.0) mg/dL Creatinine (0.8-1.3) mg/dL Est Cr Clr Drug Dosing mL/min Estimated GFR (MDRD) ml/min Glucose (74-106) mg/dL POC Glucose 117 H (60-110) mg/dL Calcium (8.5-10.1) mg/dL Phosphorus (2.6-4.7) mg/dL Magnesium (1.8-2.4) mg/dL Total Bilirubin (0.2-1.0) mg/dL AST (15-37) IU/L ALT (14-63) IU/L Alkaline Phosphatase (46-116) U/L Troponin I (0.000-0.056) ng/mL Total Protein (6.4-8.2) g/dL Albumin (3.4-5.0) g/dL Globulin (2.6-4.0) g/dL Albumin/Globulin Ratio (0.9-1.6) Triglycerides (0-200) mg/dL Cholesterol (50-200) mg/dL LDL Cholesterol, Calc (60-180) mg/dL VLDL Cholesterol (5-55) mg/dL HDL Cholesterol (40-60) mg/dL Cholesterol/HDL Ratio (3.3-6.0) TSH 3rd Generation (0.36-3.74) uIU/mL Urine Color Urine Appearance Urine pH (5.0-8.0) Ur Specific [place] (1.001-1.035) Urine Protein (NEGATIVE) mg/dL Urine Glucose (UA) (NEGATIVE) mg/dL Urine Ketones (NEGATIVE) mg/dL Urine Occult Blood (NEGATIVE) Urine Nitrite (NEGATIVE) Urine Bilirubin (NEGATIVE) Urine Urobilinogen (<2.0) EU/dL Ur Leukocyte Esterase (NEGATIVE) Urine RBC (0-2/HPF) Urine WBC (0-5/HPF) Ur Epithelial Cells (NONE-FEW) Urine Bacteria (NEGATIVE) Ethyl Alcohol mg/dL COVID-19 (LYNDA) (NEGATIVE) 11/26/19 11/26/19 11/26/19 Range/Units 19:25 19:25 20:23 WBC (4.0-11.0) K/uL RBC (4.50-5.90) M/uL Hgb (13.0-17.0) g/dL Hct (38.0-50.0) % MCV (80.0-98.0) fL MCH (27.0-32.0) pg MCHC (31.0-37.0) g/dL RDW Std Deviation (28.0-62.0) fl RDW Coeff of Jose Enrique (11.0-15.0) % Plt Count (150-400) K/uL MPV (7.40-12.00) fL Neut % (Auto) (48.0-80.0) % Lymph % (Auto) (16.0-40.0) % [place] % (Auto) (0.0-15.0) % Eos % (Auto) (0.0-7.0) % Baso % (Auto) (0.0-1.5) % Neut # (Auto) (1.4-5.7) K/uL Lymph # (Auto) (0.6-2.4) K/uL [place] # (Auto) (0.0-0.8) K/uL Eos # (Auto) (0.0-0.7) K/uL Baso # (Auto) (0.0-0.1) K/uL Nucleated RBC % /100WBC Nucleated RBCs # K/uL INR APTT (18.6-31.3) SEC Sodium 139 (136-148) mmol/L Potassium 3.9 (3.5-5.1) mmol/L Chloride 104 (98-107) mmol/L Carbon Dioxide 20.4 L (21.0-32.0) mmol/L BUN 10 (7.0-18.0) mg/dL Creatinine 1.1 (0.8-1.3) mg/dL Est Cr Clr Drug Dosing 52.32 mL/min Estimated GFR (MDRD) > 60.0 ml/min Glucose 129 H (74-106) mg/dL POC Glucose (60-110) mg/dL Calcium 9.0 (8.5-10.1) mg/dL Phosphorus (2.6-4.7) mg/dL Magnesium (1.8-2.4) mg/dL Total Bilirubin 0.2 (0.2-1.0) mg/dL AST 24 (15-37) IU/L ALT 25 (14-63) IU/L Alkaline Phosphatase 61 (46-116) U/L Troponin I < 0.050 (0.000-0.056) ng/mL Total Protein 7.2 (6.4-8.2) g/dL Albumin 3.9 (3.4-5.0) g/dL Globulin 3.3 (2.6-4.0) g/dL Albumin/Globulin Ratio 1.2 (0.9-1.6) Triglycerides 312 H (0-200) mg/dL Cholesterol 170 (50-200) mg/dL LDL Cholesterol, Calc 77 (60-180) mg/dL VLDL Cholesterol 62 H (5-55) mg/dL HDL Cholesterol 31 L (40-60) mg/dL Cholesterol/HDL Ratio 5.5 (3.3-6.0) TSH 3rd Generation 1.07 (0.36-3.74) uIU/mL Urine Color YELLOW Urine Appearance HAZY Urine pH 5.0 (5.0-8.0) Ur Specific [place] >= 1.030 (1.001-1.035) Urine Protein TRACE H (NEGATIVE) mg/dL Urine Glucose (UA) NEGATIVE (NEGATIVE) mg/dL Urine Ketones TRACE H (NEGATIVE) mg/dL Urine Occult Blood NEGATIVE (NEGATIVE) Urine Nitrite NEGATIVE (NEGATIVE) Urine Bilirubin NEGATIVE (NEGATIVE) Urine Urobilinogen 0.2 (<2.0) EU/dL Ur Leukocyte Esterase NEGATIVE (NEGATIVE) Urine RBC 0-2 (0-2/HPF) Urine WBC 0-2 (0-5/HPF) Ur Epithelial Cells RARE (NONE-FEW) Urine Bacteria RARE (NEGATIVE) Ethyl Alcohol <3 mg/dL COVID-19 (LYNDA) (NEGATIVE) 11/26/19 11/27/19 11/27/19 Range/Units 21:17 05:17 05:17 WBC 12.49 H (4.0-11.0) K/uL RBC 4.45 L (4.50-5.90) M/uL Hgb 13.2 (13.0-17.0) g/dL Hct 41.5 (38.0-50.0) % MCV 93.3 (80.0-98.0) fL MCH 29.7 (27.0-32.0) pg MCHC 31.8 (31.0-37.0) g/dL RDW Std Deviation 47.7 (28.0-62.0) fl RDW Coeff of Jose Enrique 14 (11.0-15.0) % Plt Count 327 (150-400) K/uL MPV 11.10 (7.40-12.00) fL Neut % (Auto) 58.6 (48.0-80.0) % Lymph % (Auto) 30.4 (16.0-40.0) % [place] % (Auto) 8.0 (0.0-15.0) % Eos % (Auto) 2.6 (0.0-7.0) % Baso % (Auto) 0.4 (0.0-1.5) % Neut # (Auto) 7.3 H (1.4-5.7) K/uL Lymph # (Auto) 3.8 H (0.6-2.4) K/uL [place] # (Auto) 1.0 H (0.0-0.8) K/uL Eos # (Auto) 0.3 (0.0-0.7) K/uL Baso # (Auto) 0.1 (0.0-0.1) K/uL Nucleated RBC % 0.0 /100WBC Nucleated RBCs # 0 K/uL INR APTT (18.6-31.3) SEC Sodium (136-148) mmol/L Potassium (3.5-5.1) mmol/L Chloride (98-107) mmol/L Carbon Dioxide (21.0-32.0) mmol/L BUN (7.0-18.0) mg/dL Creatinine (0.8-1.3) mg/dL Est Cr Clr Drug Dosing mL/min Estimated GFR (MDRD) ml/min Glucose (74-106) mg/dL POC Glucose (60-110) mg/dL Calcium (8.5-10.1) mg/dL Phosphorus 2.8 (2.6-4.7) mg/dL Magnesium 1.8 (1.8-2.4) mg/dL Total Bilirubin (0.2-1.0) mg/dL AST (15-37) IU/L ALT (14-63) IU/L Alkaline Phosphatase (46-116) U/L Troponin I (0.000-0.056) ng/mL Total Protein (6.4-8.2) g/dL Albumin (3.4-5.0) g/dL Globulin (2.6-4.0) g/dL Albumin/Globulin Ratio (0.9-1.6) Triglycerides (0-200) mg/dL Cholesterol (50-200) mg/dL LDL Cholesterol, Calc (60-180) mg/dL VLDL Cholesterol (5-55) mg/dL HDL Cholesterol (40-60) mg/dL Cholesterol/HDL Ratio (3.3-6.0) TSH 3rd Generation (0.36-3.74) uIU/mL Urine Color Urine Appearance Urine pH (5.0-8.0) Ur Specific [place] (1.001-1.035) Urine Protein (NEGATIVE) mg/dL Urine Glucose (UA) (NEGATIVE) mg/dL Urine Ketones (NEGATIVE) mg/dL Urine Occult Blood (NEGATIVE) Urine Nitrite (NEGATIVE) Urine Bilirubin (NEGATIVE) Urine Urobilinogen (<2.0) EU/dL Ur Leukocyte Esterase (NEGATIVE) Urine RBC (0-2/HPF) Urine WBC (0-5/HPF) Ur Epithelial Cells (NONE-FEW) Urine Bacteria (NEGATIVE) Ethyl Alcohol mg/dL COVID-19 (LYNDA) NEGATIVE (NEGATIVE) 11/27/19 Range/Units 06:30 WBC (4.0-11.0) K/uL RBC (4.50-5.90) M/uL Hgb (13.0-17.0) g/dL Hct (38.0-50.0) % MCV (80.0-98.0) fL MCH (27.0-32.0) pg MCHC (31.0-37.0) g/dL RDW Std Deviation (28.0-62.0) fl RDW Coeff of Jose Enrique (11.0-15.0) % Plt Count (150-400) K/uL MPV (7.40-12.00) fL Neut % (Auto) (48.0-80.0) % Lymph % (Auto) (16.0-40.0) % [place] % (Auto) (0.0-15.0) % Eos % (Auto) (0.0-7.0) % Baso % (Auto) (0.0-1.5) % Neut # (Auto) (1.4-5.7) K/uL Lymph # (Auto) (0.6-2.4) K/uL [place] # (Auto) (0.0-0.8) K/uL Eos # (Auto) (0.0-0.7) K/uL Baso # (Auto) (0.0-0.1) K/uL Nucleated RBC % /100WBC Nucleated RBCs # K/uL INR APTT (18.6-31.3) SEC Sodium (136-148) mmol/L Potassium (3.5-5.1) mmol/L Chloride (98-107) mmol/L Carbon Dioxide (21.0-32.0) mmol/L BUN (7.0-18.0) mg/dL Creatinine (0.8-1.3) mg/dL Est Cr Clr Drug Dosing mL/min Estimated GFR (MDRD) ml/min Glucose (74-106) mg/dL POC Glucose 131 H (60-110) mg/dL Calcium (8.5-10.1) mg/dL Phosphorus (2.6-4.7) mg/dL Magnesium (1.8-2.4) mg/dL Total Bilirubin (0.2-1.0) mg/dL AST (15-37) IU/L ALT (14-63) IU/L Alkaline Phosphatase (46-116) U/L Troponin I (0.000-0.056) ng/mL Total Protein (6.4-8.2) g/dL Albumin (3.4-5.0) g/dL Globulin (2.6-4.0) g/dL Albumin/Globulin Ratio (0.9-1.6) Triglycerides (0-200) mg/dL Cholesterol (50-200) mg/dL LDL Cholesterol, Calc (60-180) mg/dL VLDL Cholesterol (5-55) mg/dL HDL Cholesterol (40-60) mg/dL Cholesterol/HDL Ratio (3.3-6.0) TSH 3rd Generation (0.36-3.74) uIU/mL Urine Color Urine Appearance Urine pH (5.0-8.0) Ur Specific [place] (1.001-1.035) Urine Protein (NEGATIVE) mg/dL Urine Glucose (UA) (NEGATIVE) mg/dL Urine Ketones (NEGATIVE) mg/dL Urine Occult Blood (NEGATIVE) Urine Nitrite (NEGATIVE) Urine Bilirubin (NEGATIVE) Urine Urobilinogen (<2.0) EU/dL Ur Leukocyte Esterase (NEGATIVE) Urine RBC (0-2/HPF) Urine WBC (0-5/HPF) Ur Epithelial Cells (NONE-FEW) Urine Bacteria (NEGATIVE) Ethyl Alcohol mg/dL COVID-19 (LYNDA) (NEGATIVE) Med Orders - Current: Current Medications Acetaminophen (Tylenol) 650 mg PO Q4H PRN PRN Reason: Pain (Mild 1-3)/fever Albuterol/Ipratropium (Duoneb 3.0-0.5 Mg/3 Ml) 3 ml NEB Q4HRRT PRN PRN Reason: Shortness Of Breath/wheezing Aspirin (Aspirin) 162.5 mg PO DAILY [facility] Last Admin: 11/27/19 09:49 Dose: 162.5 mg Documented by: Clopidogrel Bisulfate (Plavix) 75 mg PO DAILY [facility] Last Admin: 11/27/19 09:50 Dose: 75 mg Documented by: Escitalopram Oxalate (Lexapro) 20 mg PO BEDTIME [facility] Famotidine (Pepcid) 40 mg PO DAILY [facility] Last Admin: 11/27/19 09:50 Dose: 40 mg Documented by: Insulin Aspart (Novolog) 0 unit SUBCUT TIDAC [facility]; Protocol Last Admin: 11/27/19 07:55 Dose: Not Given Documented by: Simvastatin (Zocor) 80 mg PO BEDTIME [facility] Sodium Chloride (Saline Flush) 10 ml FLUSH ASDIRECTED PRN PRN Reason: Keep Vein Open Last Admin: 11/26/19 19:43 Dose: 10 ml Documented by: Sodium Chloride (Saline Flush) 2.5 ml FLUSH ASDIRECTED PRN PRN Reason: Keep Vein Open Last Admin: 11/26/19 19:43 Dose: 2.5 ml Documented by: Sodium Chloride (Normal Saline) 10 ml IV ASDIRECTED PRN PRN Reason: IV Use Discontinued Medications Aspirin (Aspirin) 81 mg PO BEDTIME [facility] Last Admin: 11/26/19 23:26 Dose: Not Given Documented by: Aspirin (Aspirin) 81 mg PO ONETIME ONE Stop: 11/26/19 21:30 Last Admin: 11/26/19 22:59 Dose: 81 mg Documented by: Atorvastatin Calcium (Lipitor) 40 mg PO BEDTIME [facility] Last Admin: 11/26/19 23:26 Dose: Not Given Documented by: Escitalopram Oxalate (Lexapro) 20 mg PO ONETIME ONE Stop: 11/26/19 22:46 Last Admin: 11/26/19 22:59 Dose: 20 mg Documented by: Sodium Chloride (Normal Saline) 1,000 mls @ 125 mls/hr IV NOW STA Stop: 11/27/19 03:25 Last Admin: 11/26/19 19:42 Dose: 125 mls/hr Documented by: Simvastatin (Zocor) 80 mg PO ONETIME ONE Stop: 11/26/19 23:16 Last Admin: 11/26/19 23:20 Dose: 80 mg Documented by: - Exam Quality Assessment: No: Supplemental Oxygen General: Alert, Oriented, Cooperative, No Acute Distress HEENT: EOMI, Mucous Membr. Moist/[place], Other (poor dentition) Neck: Supple Lungs: Clear to Auscultation, Normal Respiratory Effort Cardiovascular: Regular Rate, Regular Rhythm GI/Abdominal Exam: Normal Bowel Sounds, Soft, Non-Tender Back Exam: Normal Inspection Extremities: Normal Inspection, No Pedal Edema Skin: Warm, Dry, Intact Neurological: No New Focal Deficit, Normal Gait, Strength Equal Bilateral, Reflexes Equal Bilateral, Sensation Intact, Cranial Nerves Intact Psy/Mental Status: Alert, Normal Affect, Normal Mood Sepsis Event Note - Evaluation Sepsis Screening Result: No Definite Risk - Focused Exam Vital Signs: Vital Signs Temp Pulse Resp BP Pulse Ox Pulse Ox 11/27/19 07:57 97.7 F 18 134/71 94 L 11/27/19 04:00 97.8 F 84 20 165/88 H 93 L 11/26/19 23:18 94 L 94 L - Problem List Review Problem List Initiated/Reviewed/Updated: Yes - Plan Plan:: 69 y/o M admitted for confusion, slurred speech, symptoms resolved, no TPA administered CT head: No evidence of acute bleed or infarct. Questionable hyperdensity in the right MCA Admit to tele Allow permissive HTN AM:no acute deficits appreciated. No slurred speech, baseline speech impediment, per family + patient , due to poor dentition; awaiting imaging reports. Hold metoprolol for permissive HTN; continue to monitor via neuro-checks MRI/MRA brain and neck 2D ECHO SCD for dvt ppx cont DAPT cont home meds, hold antihypertensives Neuro checks Q6H Check Lipids Leucocytosis likely reactive, no fever, recheck CBC in am
[2019-11-27] MEDS ORDERED: Gadobenate Dimeglumine 529 MG/ML 20 ML SDV IVPUSH STA (12:28)
--- NOTE | 2019-11-27 13:27 | MR ---
INDICATION: 69-year-old male. Slurred speech. TECHNIQUE: 3D [id number] magnetic resonance angiography [place] arteries. COMPARISON: CT brain dated 11/26/2019. FINDINGS: The intracranial segments of the internal carotid arteries and basilar artery are widely patent. Horizontal segments of the middle cerebral arteries and posterior cerebral arteries are visualized and patent. Hypoplastic right A-1 segment. Both anterior cerebral arteries fill from the left carotid system. Hypoplastic distal right vertebral artery appears to terminate as posterior inferior cerebellar artery. IMPRESSION: 1. No evidence of occlusion or high-grade stenosis of the proximal cerebral arteries. 2. Congenital variant anatomy as described. Dictated by Pritesh Quintana MD @ Nov 27 2019 1:22PM Signed by Dr. Pritesh Quintana @ Nov 27 2019 1:25PM
--- NOTE | 2019-11-27 14:13 | MR ---
INDICATION: 69-year-old male. Slurred speech. TECHNIQUE: Sagittal T1 axial FLAIR T2 diffusion-weighted susceptibility weighted and gadolinium-enhanced volumetric T1 weighted sequences. COMPARISON: CT brain on 11/26/2019. FINDINGS: The ventricles normal in size and configuration. Mild prominence of subarachnoid spaces due to mild volume loss. There is no diffusion restriction to suggest acute infarction. No evidence of intracranial hemorrhage. No mass effect. There are several small multifocal areas of FLAIR and T2 hyperintensity within the supratentorial white matter consistent with chronic small vessel ischemic disease and small chronic lacunar infarcts. No focal lesion in the brainstem or cerebellum. No enhancing intra-axial or extra-axial lesion is seen. Inflammatory mucosal thickening in the left maxillary posterior ethmoid and sphenoid sinuses without air-fluid levels. IMPRESSION: 1. No evidence of acute infarction, intracranial hemorrhage, mass or enhancing lesion. 2. Consistent with mild chronic microvascular ischemic changes within bilateral supratentorial white matter. 3. Mild volume loss. Dictated by Pritesh Quintana MD @ Nov 27 2019 1:45PM Signed by Dr. Pritesh Quintana @ Nov 27 2019 2:12PM
--- NOTE | 2019-11-27 14:17 | MR ---
INDICATION: 69-year-old male. Slurred speech. TECHNIQUE: [id number] magnetic resonance angiography [place] arteries. FINDINGS: Contrast-enhanced MRA images are technically limited. Technologist reports bolus timing error. [id number] MRA images show patency of the bilateral common carotid internal and external carotid arteries. No evidence for hemodynamically significant stenosis at or near the common carotid bifurcations. 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 Hypoplastic distal right vertebral artery. IMPRESSION: 1. Technically limited study. 2. No evidence for hemodynamically significant stenosis near the bilateral common carotid bifurcations. 3. Patent vertebral arteries. Hypoplastic right vertebral artery. Dictated by Pritesh Quintana MD @ Nov 27 2019 1:46PM Signed by Dr. Pritesh Quintana @ Nov 27 2019 2:17PM
[2019-11-27 15:52] VITALS: BP 151/90; PULSE 75
--- NOTE | 2019-11-27 17:50 | PCM.DCSUM1 ---
Discharge Summary - Hospital Course Free Text/Narrative:: 69-year-old gentleman with a history significant for hypertension, diabetes, CAD status post stent in 2007 who presents ER today secondary to slurred speech and difficulty with word finding that occurred earlier today. Per reports around 530pm patients noticed that he was having slurring the speech after making dinner. 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 Patient denies any recent fevers, shakes, chills, nausea, vomiting, diarrhea, dysuria, frequency, urgency, chest pain, shortness of breath, abdominal pain. Patient has been tolerating p.o.'s well without any difficulty. Patient denies any weakness to his upper or lower extremities, no reported facial droop. In the ER vitals were acceptable, lab work showed leucocytosis but no sepsis. Patient symptoms has resolved by the time he reached the ER as confirmed by the family to ER physician. CT head: No evidence of acute bleed or infarct. Questionable hyperdensity in the right MCA (patient incidentally did not have any complaints of weakness to his left side noted by himself or his family), Admitted for Stroke work up. Hospital course : Vitals throughout stay stable and no CN deficits appreciated. pt endorsed recent dental work and believes his "slurred speech" may have something to do with that. pt is hard of hearing at baseline but otherwise did not exhibit any CN deficits, gait imbalances and or CP/SOB and or palpitations Monitored on telemetry: no acute issues/ Labs stable: nothing acute noted. COVID negative MRI brain , MRA head neck and carotid duplex ordered : no acute signs of ischemia/stroke noted; no carotid stenosis Some small areas of chronic small (old) lacunar infarcts; pt and son however denies any previous history of stroke,. ECHO also performed: results/report pending. Troponin negative. Discussed care with son; recommended follow up with molding manager and dentist; follow up with PCP also set up. pt requested discharge. Discharge in stable condition. Repeat neuro exam prior to discharge did not yield any acute concerns. Advised to continue current medications Discharged home. - Discharge Data Discharge Date: 11/27/19 Discharge Disposition: Home, Self-Care 01 Condition: Fair - Referral to Home Health Primary Care Physician: David Gray MD - Patient Instructions Diet: Diabetic Diet Notify Provider of: Fever, Nausea and/or Vomiting - Discharge Plan *PRESCRIPTION DRUG MONITORING PROGRAM REVIEWED*: No *COPY OF PRESCRIPTION DRUG MONITORING REPORT IN PATIENT BRAD: No Home Medications: Home Meds Clopidogrel [Plavix] 75 mg PO DAILY 10/18/13 [History] Metoprolol Succinate [Toprol XL] 25 mg PO DAILY 10/18/13 [History] Simvastatin [Zocor] 80 mg PO BEDTIME 10/18/13 [History] metFORMIN [Glucophage] 1,000 mg PO DAILY 10/18/13 [History] Escitalopram [Lexapro] 20 mg PO BEDTIME 04/13/17 [History] Famotidine 40 mg PO DAILY 04/13/17 [History] Empagliflozin [Jardiance] 10 mg PO DAILY 04/15/19 [History] Acetaminophen [Tylenol] 650 mg PO Q4H PRN tablet 11/27/19 [Rx] Aspirin 162.5 mg PO DAILY 11/27/19 [History] Glimepiride 4 mg PO BID 11/27/19 [History] Patient Handouts: Transient Ischemic Attack, [id number] Referrals: David Gray MD [Primary Care Provider] - 12/10/19 8:00 am - Discharge Summary/Plan Comment DC Time >30 min.: No - Patient Data Vitals - Most Recent: Last Vital Signs Temp 97.4 F 11/27/19 15:00 Pulse 75 11/27/19 15:00 Resp 18 11/27/19 15:00 BP 151/90 H 11/27/19 15:00 Pulse Ox 95 11/27/19 15:00 Weight - Most Recent: 97.97 kg I&O - Last 24 hours: Intake & Output 11/27/19 11/27/19 11/27/19 06:59 14:59 22:59 Intake Total 600 360 Output Total 500 520 Balance 100 -160 Lab Results - Last 24 hrs: Laboratory Results - last 24 hr 11/26/19 11/26/19 11/26/19 Range/Units 19:19 19:25 19:25 WBC 18.08 H (4.0-11.0) K/uL RBC 4.71 (4.50-5.90) M/uL Hgb 14.1 (13.0-17.0) g/dL Hct 43.9 (38.0-50.0) % MCV 93.2 (80.0-98.0) fL MCH 29.9 (27.0-32.0) pg MCHC 32.1 (31.0-37.0) g/dL RDW Std Deviation 47.2 (28.0-62.0) fl RDW Coeff of Jose Enrique 14 (11.0-15.0) % Plt Count 332 (150-400) K/uL MPV 11.30 (7.40-12.00) fL Neut % (Auto) 79.9 (48.0-80.0) % Lymph % (Auto) 12.4 L (16.0-40.0) % Dillon % (Auto) 6.4 (0.0-15.0) % Eos % (Auto) 1.1 (0.0-7.0) % Baso % (Auto) 0.2 (0.0-1.5) % Neut # (Auto) 14.4 H (1.4-5.7) K/uL Lymph # (Auto) 2.2 (0.6-2.4) K/uL Dillon # (Auto) 1.2 H (0.0-0.8) K/uL Eos # (Auto) 0.2 (0.0-0.7) K/uL Baso # (Auto) 0.0 (0.0-0.1) K/uL Nucleated RBC % 0.0 /100WBC Nucleated RBCs # 0 K/uL INR 1.05 APTT 23.6 (18.6-31.3) SEC Sodium (136-148) mmol/L Potassium (3.5-5.1) mmol/L Chloride (98-107) mmol/L Carbon Dioxide (21.0-32.0) mmol/L BUN (7.0-18.0) mg/dL Creatinine (0.8-1.3) mg/dL Est Cr Clr Drug Dosing mL/min Estimated GFR (MDRD) ml/min Glucose (74-106) mg/dL POC Glucose 117 H (60-110) mg/dL Calcium (8.5-10.1) mg/dL Phosphorus (2.6-4.7) mg/dL Magnesium (1.8-2.4) mg/dL Total Bilirubin (0.2-1.0) mg/dL AST (15-37) IU/L ALT (14-63) IU/L Alkaline Phosphatase (46-116) U/L Troponin I (0.000-0.056) ng/mL Total Protein (6.4-8.2) g/dL Albumin (3.4-5.0) g/dL Globulin (2.6-4.0) g/dL Albumin/Globulin Ratio (0.9-1.6) Triglycerides (0-200) mg/dL Cholesterol (50-200) mg/dL LDL Cholesterol, Calc (60-180) mg/dL VLDL Cholesterol (5-55) mg/dL HDL Cholesterol (40-60) mg/dL Cholesterol/HDL Ratio (3.3-6.0) TSH 3rd Generation (0.36-3.74) uIU/mL Urine Color Urine Appearance Urine pH (5.0-8.0) Ur Specific [place] (1.001-1.035) Urine Protein (NEGATIVE) mg/dL Urine Glucose (UA) (NEGATIVE) mg/dL Urine Ketones (NEGATIVE) mg/dL Urine Occult Blood (NEGATIVE) Urine Nitrite (NEGATIVE) Urine Bilirubin (NEGATIVE) Urine Urobilinogen (<2.0) EU/dL Ur Leukocyte Esterase (NEGATIVE) Urine RBC (0-2/HPF) Urine WBC (0-5/HPF) Ur Epithelial Cells (NONE-FEW) Urine Bacteria (NEGATIVE) Ethyl Alcohol mg/dL COVID-19 (LYNDA) (NEGATIVE) 11/26/19 11/26/19 11/26/19 Range/Units 19:25 19:25 20:23 WBC (4.0-11.0) K/uL RBC (4.50-5.90) M/uL Hgb (13.0-17.0) g/dL Hct (38.0-50.0) % MCV (80.0-98.0) fL MCH (27.0-32.0) pg MCHC (31.0-37.0) g/dL RDW Std Deviation (28.0-62.0) fl RDW Coeff of Jose Enrique (11.0-15.0) % Plt Count (150-400) K/uL MPV (7.40-12.00) fL Neut % (Auto) (48.0-80.0) % Lymph % (Auto) (16.0-40.0) % Dillon % (Auto) (0.0-15.0) % Eos % (Auto) (0.0-7.0) % Baso % (Auto) (0.0-1.5) % Neut # (Auto) (1.4-5.7) K/uL Lymph # (Auto) (0.6-2.4) K/uL Dillon # (Auto) (0.0-0.8) K/uL Eos # (Auto) (0.0-0.7) K/uL Baso # (Auto) (0.0-0.1) K/uL Nucleated RBC % /100WBC Nucleated RBCs # K/uL INR APTT (18.6-31.3) SEC Sodium 139 (136-148) mmol/L Potassium 3.9 (3.5-5.1) mmol/L Chloride 104 (98-107) mmol/L Carbon Dioxide 20.4 L (21.0-32.0) mmol/L BUN 10 (7.0-18.0) mg/dL Creatinine 1.1 (0.8-1.3) mg/dL Est Cr Clr Drug Dosing 52.32 mL/min Estimated GFR (MDRD) > 60.0 ml/min Glucose 129 H (74-106) mg/dL POC Glucose (60-110) mg/dL Calcium 9.0 (8.5-10.1) mg/dL Phosphorus (2.6-4.7) mg/dL Magnesium (1.8-2.4) mg/dL Total Bilirubin 0.2 (0.2-1.0) mg/dL AST 24 (15-37) IU/L ALT 25 (14-63) IU/L Alkaline Phosphatase 61 (46-116) U/L Troponin I < 0.050 (0.000-0.056) ng/mL Total Protein 7.2 (6.4-8.2) g/dL Albumin 3.9 (3.4-5.0) g/dL Globulin 3.3 (2.6-4.0) g/dL Albumin/Globulin Ratio 1.2 (0.9-1.6) Triglycerides 312 H (0-200) mg/dL Cholesterol 170 (50-200) mg/dL LDL Cholesterol, Calc 77 (60-180) mg/dL VLDL Cholesterol 62 H (5-55) mg/dL HDL Cholesterol 31 L (40-60) mg/dL Cholesterol/HDL Ratio 5.5 (3.3-6.0) TSH 3rd Generation 1.07 (0.36-3.74) uIU/mL Urine Color YELLOW Urine Appearance HAZY Urine pH 5.0 (5.0-8.0) Ur Specific [place] >= 1.030 (1.001-1.035) Urine Protein TRACE H (NEGATIVE) mg/dL Urine Glucose (UA) NEGATIVE (NEGATIVE) mg/dL Urine Ketones TRACE H (NEGATIVE) mg/dL Urine Occult Blood NEGATIVE (NEGATIVE) Urine Nitrite NEGATIVE (NEGATIVE) Urine Bilirubin NEGATIVE (NEGATIVE) Urine Urobilinogen 0.2 (<2.0) EU/dL Ur Leukocyte Esterase NEGATIVE (NEGATIVE) Urine RBC 0-2 (0-2/HPF) Urine WBC 0-2 (0-5/HPF) Ur Epithelial Cells RARE (NONE-FEW) Urine Bacteria RARE (NEGATIVE) Ethyl Alcohol <3 mg/dL COVID-19 (LYNDA) (NEGATIVE) 11/26/19 11/27/19 11/27/19 Range/Units 21:17 05:17 05:17 WBC 12.49 H (4.0-11.0) K/uL RBC 4.45 L (4.50-5.90) M/uL Hgb 13.2 (13.0-17.0) g/dL Hct 41.5 (38.0-50.0) % MCV 93.3 (80.0-98.0) fL MCH 29.7 (27.0-32.0) pg MCHC 31.8 (31.0-37.0) g/dL RDW Std Deviation 47.7 (28.0-62.0) fl RDW Coeff of Jose Enrique 14 (11.0-15.0) % Plt Count 327 (150-400) K/uL MPV 11.10 (7.40-12.00) fL Neut % (Auto) 58.6 (48.0-80.0) % Lymph % (Auto) 30.4 (16.0-40.0) % Dillon % (Auto) 8.0 (0.0-15.0) % Eos % (Auto) 2.6 (0.0-7.0) % Baso % (Auto) 0.4 (0.0-1.5) % Neut # (Auto) 7.3 H (1.4-5.7) K/uL Lymph # (Auto) 3.8 H (0.6-2.4) K/uL Dillon # (Auto) 1.0 H (0.0-0.8) K/uL Eos # (Auto) 0.3 (0.0-0.7) K/uL Baso # (Auto) 0.1 (0.0-0.1) K/uL Nucleated RBC % 0.0 /100WBC Nucleated RBCs # 0 K/uL INR APTT (18.6-31.3) SEC Sodium (136-148) mmol/L Potassium (3.5-5.1) mmol/L Chloride (98-107) mmol/L Carbon Dioxide (21.0-32.0) mmol/L BUN (7.0-18.0) mg/dL Creatinine (0.8-1.3) mg/dL Est Cr Clr Drug Dosing mL/min Estimated GFR (MDRD) ml/min Glucose (74-106) mg/dL POC Glucose (60-110) mg/dL Calcium (8.5-10.1) mg/dL Phosphorus 2.8 (2.6-4.7) mg/dL Magnesium 1.8 (1.8-2.4) mg/dL Total Bilirubin (0.2-1.0) mg/dL AST (15-37) IU/L ALT (14-63) IU/L Alkaline Phosphatase (46-116) U/L Troponin I (0.000-0.056) ng/mL Total Protein (6.4-8.2) g/dL Albumin (3.4-5.0) g/dL Globulin (2.6-4.0) g/dL Albumin/Globulin Ratio (0.9-1.6) Triglycerides (0-200) mg/dL Cholesterol (50-200) mg/dL LDL Cholesterol, Calc (60-180) mg/dL VLDL Cholesterol (5-55) mg/dL HDL Cholesterol (40-60) mg/dL Cholesterol/HDL Ratio (3.3-6.0) TSH 3rd Generation (0.36-3.74) uIU/mL Urine Color Urine Appearance Urine pH (5.0-8.0) Ur Specific [place] (1.001-1.035) Urine Protein (NEGATIVE) mg/dL Urine Glucose (UA) (NEGATIVE) mg/dL Urine Ketones (NEGATIVE) mg/dL Urine Occult Blood (NEGATIVE) Urine Nitrite (NEGATIVE) Urine Bilirubin (NEGATIVE) Urine Urobilinogen (<2.0) EU/dL Ur Leukocyte Esterase (NEGATIVE) Urine RBC (0-2/HPF) Urine WBC (0-5/HPF) Ur Epithelial Cells (NONE-FEW) Urine Bacteria (NEGATIVE) Ethyl Alcohol mg/dL COVID-19 (LYNDA) NEGATIVE (NEGATIVE) 11/27/19 11/27/19 Range/Units 06:30 11:32 WBC (4.0-11.0) K/uL RBC (4.50-5.90) M/uL Hgb (13.0-17.0) g/dL Hct (38.0-50.0) % MCV (80.0-98.0) fL MCH (27.0-32.0) pg MCHC (31.0-37.0) g/dL RDW Std Deviation (28.0-62.0) fl RDW Coeff of Jose Enrique (11.0-15.0) % Plt Count (150-400) K/uL MPV (7.40-12.00) fL Neut % (Auto) (48.0-80.0) % Lymph % (Auto) (16.0-40.0) % Dillon % (Auto) (0.0-15.0) % Eos % (Auto) (0.0-7.0) % Baso % (Auto) (0.0-1.5) % Neut # (Auto) (1.4-5.7) K/uL Lymph # (Auto) (0.6-2.4) K/uL Dillon # (Auto) (0.0-0.8) K/uL Eos # (Auto) (0.0-0.7) K/uL Baso # (Auto) (0.0-0.1) K/uL Nucleated RBC % /100WBC Nucleated RBCs # K/uL INR APTT (18.6-31.3) SEC Sodium (136-148) mmol/L Potassium (3.5-5.1) mmol/L Chloride (98-107) mmol/L Carbon Dioxide (21.0-32.0) mmol/L BUN (7.0-18.0) mg/dL Creatinine (0.8-1.3) mg/dL Est Cr Clr Drug Dosing mL/min Estimated GFR (MDRD) ml/min Glucose (74-106) mg/dL POC Glucose 131 H 170 H (60-110) mg/dL Calcium (8.5-10.1) mg/dL Phosphorus (2.6-4.7) mg/dL Magnesium (1.8-2.4) mg/dL Total Bilirubin (0.2-1.0) mg/dL AST (15-37) IU/L ALT (14-63) IU/L Alkaline Phosphatase (46-116) U/L Troponin I (0.000-0.056) ng/mL Total Protein (6.4-8.2) g/dL Albumin (3.4-5.0) g/dL Globulin (2.6-4.0) g/dL Albumin/Globulin Ratio (0.9-1.6) Triglycerides (0-200) mg/dL Cholesterol (50-200) mg/dL LDL Cholesterol, Calc (60-180) mg/dL VLDL Cholesterol (5-55) mg/dL HDL Cholesterol (40-60) mg/dL Cholesterol/HDL Ratio (3.3-6.0) TSH 3rd Generation (0.36-3.74) uIU/mL Urine Color Urine Appearance Urine pH (5.0-8.0) Ur Specific [place] (1.001-1.035) Urine Protein (NEGATIVE) mg/dL Urine Glucose (UA) (NEGATIVE) mg/dL Urine Ketones (NEGATIVE) mg/dL Urine Occult Blood (NEGATIVE) Urine Nitrite (NEGATIVE) Urine Bilirubin (NEGATIVE) Urine Urobilinogen (<2.0) EU/dL Ur Leukocyte Esterase (NEGATIVE) Urine RBC (0-2/HPF) Urine WBC (0-5/HPF) Ur Epithelial Cells (NONE-FEW) Urine Bacteria (NEGATIVE) Ethyl Alcohol mg/dL COVID-19 (LYNDA) (NEGATIVE) Med Orders - Current: Current Medications Acetaminophen (Tylenol) 650 mg PO Q4H PRN PRN Reason: Pain (Mild 1-3)/fever Albuterol/Ipratropium (Duoneb 3.0-0.5 Mg/3 Ml) 3 ml NEB Q4HRRT PRN PRN Reason: Shortness Of Breath/wheezing Aspirin (Aspirin) 162.5 mg PO DAILY [facility] Last Admin: 11/27/19 09:49 Dose: 162.5 mg Documented by: Clopidogrel Bisulfate (Plavix) 75 mg PO DAILY [facility] Last Admin: 11/27/19 09:50 Dose: 75 mg Documented by: Escitalopram Oxalate (Lexapro) 20 mg PO BEDTIME [facility] Famotidine (Pepcid) 40 mg PO DAILY [facility] Last Admin: 11/27/19 09:50 Dose: 40 mg Documented by: Insulin Aspart (Novolog) 0 unit SUBCUT TIDAC [facility]; Protocol Last Admin: 11/27/19 17:43 Dose: Not Given Documented by: Simvastatin (Zocor) 80 mg PO BEDTIME [facility] Sodium Chloride (Saline Flush) 10 ml FLUSH ASDIRECTED PRN PRN Reason: Keep Vein Open Last Admin: 11/26/19 19:43 Dose: 10 ml Documented by: Sodium Chloride (Saline Flush) 2.5 ml FLUSH ASDIRECTED PRN PRN Reason: Keep Vein Open Last Admin: 11/26/19 19:43 Dose: 2.5 ml Documented by: Sodium Chloride (Normal Saline) 10 ml IV ASDIRECTED PRN PRN Reason: IV Use Discontinued Medications Aspirin (Aspirin) 81 mg PO BEDTIME [facility] Last Admin: 11/26/19 23:26 Dose: Not Given Documented by: Aspirin (Aspirin) 81 mg PO ONETIME ONE Stop: 11/26/19 21:30 Last Admin: 11/26/19 22:59 Dose: 81 mg Documented by: Atorvastatin Calcium (Lipitor) 40 mg PO BEDTIME [facility] Last Admin: 11/26/19 23:26 Dose: Not Given Documented by: Escitalopram Oxalate (Lexapro) 20 mg PO ONETIME ONE Stop: 11/26/19 22:46 Last Admin: 11/26/19 22:59 Dose: 20 mg Documented by: Gadobenate Dimeglumine (Multihance) 20 ml IVPUSH ONETIME STA Stop: 11/27/19 12:29 Last Admin: 11/27/19 12:32 Dose: 18 ml Documented by: Sodium Chloride (Normal Saline) 1,000 mls @ 125 mls/hr IV NOW STA Stop: 11/27/19 03:25 Last Admin: 11/26/19 19:42 Dose: 125 mls/hr Documented by: Simvastatin (Zocor) 80 mg PO ONETIME ONE Stop: 11/26/19 23:16 Last Admin: 11/26/19 23:20 Dose: 80 mg Documented by:
[2019-11-27] MEDS ORDERED: Escitalopram 10 MG Tab PO SCH (21:00)
[2019-11-27] MEDS ORDERED: Simvastatin 40 MG Tab PO SCH (21:00)
--- NOTE | 2019-12-02 09:17 | ECHO ---
EXAM DATE: 11/26/19 PATIENT'S AGE: 69 The ECHO report has been scanned into [employer] and can be seen in this patient's EMR (Electronic Medical Record) under the REPORTS section. The report has also been scanned into PACS. [facility]A
== END 2019-11-27 18:30 | disposition home or self-care (01) ==
LOC: MW.ED 18:41 → MW.MS 20:43
PROVIDERS: ADMIT Student in an Organized Health Care Education/Training Program; ATTEND Student in an Organized Health Care Education/Training Program
DX: G45.9 Transient cerebral ischemic attack, unspecified (principal); I10 Essential (primary) hypertension; E11.9 Type 2 diabetes mellitus without complications; I25.10 Atherosclerotic heart disease of native coronary artery without angina pectoris; K21.9 Gastro-esophageal reflux disease without esophagitis; F32.9 Major depressive disorder, single episode, unspecified; I25.2 Old myocardial infarction; E78.5 Hyperlipidemia, unspecified; Z95.5 Presence of coronary angioplasty implant and graft; Z88.8 Allergy status to other drugs, medicaments and biological substances; Z88.6 Allergy status to analgesic agent; Z79.84 Long term (current) use of oral hypoglycemic drugs; Z79.899 Other long term (current) drug therapy; Z79.82 Long term (current) use of aspirin; Z20.828 Contact with and (suspected) exposure to other viral communicable diseases
CPT/HCPCS: 36415; 70450; 70544; 70548; 70553; 71045; 80053; 80061; 80307; 81001; 82962; 83735; 84100; 84443; 84484; 85025; 85610; 85730; 87635; 93005; 93306; 93880; 96360; 96361; 99285; A9270; A9577; J1815; J7030; G0378; U0002

== ENCOUNTER 2021-04-18 18:42 | Emergency (ER) | payer BC, MEDICARE ==
[2021-04-18 18:53] VITALS: PULSE 89
[2021-04-18] MEDS ORDERED: Acetaminophen/oxyCODONE 325-5 MG Tab PO ONE (19:03)
[2021-04-18] MEDS ORDERED: Dexamethasone 10 MG/ML SDV IM STA (19:03)
[2021-04-18 20:10] VITALS: BP 130/87
== END 2021-04-18 20:10 | disposition home or self-care (01) ==
LOC: MW.ED 18:42
DX: M54.12 Radiculopathy, cervical region (principal); I10 Essential (primary) hypertension; I25.2 Old myocardial infarction; K21.9 Gastro-esophageal reflux disease without esophagitis; E11.9 Type 2 diabetes mellitus without complications; Z88.6 Allergy status to analgesic agent; Z88.8 Allergy status to other drugs, medicaments and biological substances; Z79.84 Long term (current) use of oral hypoglycemic drugs; Z79.02 Long term (current) use of antithrombotics/antiplatelets; Z79.899 Other long term (current) drug therapy
CPT/HCPCS: 96372; 99283; A9270; J1100

== ENCOUNTER 2021-09-10 13:24 | Emergency (ER) | payer MEDICARE, BC ==
[2021-09-10 15:18] VITALS: BP 143/90; PULSE 82
== END 2021-09-10 15:18 | disposition home or self-care (01) ==
LOC: MW.ED 13:24
DX: Z48.00 Encounter for change or removal of nonsurgical wound dressing (principal); Z88.8 Allergy status to other drugs, medicaments and biological substances; Z79.02 Long term (current) use of antithrombotics/antiplatelets; Z79.899 Other long term (current) drug therapy; Z79.82 Long term (current) use of aspirin; Z79.84 Long term (current) use of oral hypoglycemic drugs
CPT/HCPCS: 99282

== ENCOUNTER 2022-11-06 02:44 | Emergency (ER) | payer BC, MEDICARE ==
[2022-11-06 04:03] VITALS: BP 166/101; PULSE 86
== END 2022-11-06 04:01 | disposition home or self-care (01) ==
LOC: MW.ED 02:44
DX: U07.1 COVID-19 (principal); I10 Essential (primary) hypertension; E11.9 Type 2 diabetes mellitus without complications; K21.9 Gastro-esophageal reflux disease without esophagitis; Z95.5 Presence of coronary angioplasty implant and graft; Z79.84 Long term (current) use of oral hypoglycemic drugs; Z79.899 Other long term (current) drug therapy; Z88.8 Allergy status to other drugs, medicaments and biological substances; Z88.6 Allergy status to analgesic agent
CPT/HCPCS: 99282; 99283; U0002

== ENCOUNTER 2022-12-07 22:20 | Emergency (ER) | payer BC, MEDICARE ==
[2022-12-07 22:34] VITALS: PULSE 88
[2022-12-07] MEDS ORDERED: Sodium Chloride 0.9% 10 ML Syringe FLUSH PRN (22:47)
[2022-12-07] MEDS ORDERED: Sodium Chloride 0.9% 2.5 ML Syringe FLUSH PRN (22:47)
[2022-12-07 23:09] LABS: BASOPHILS ABSOLUTE AUTO 0.1 K/uL (0.0-0.1); BASOPHILS PERCENT AUTO 0.7 % (0.0-1.5); EOSINOPHILS ABSOLUTE AUTO 0.5 K/uL (0.0-0.7); EOSINOPHILS PERCENT AUTO 4.4 % (0.0-7.0); HEMATOCRIT 42.9 % (38.0-50.0); HEMOGLOBIN 13.9 g/dL (13.0-17.0); LYMPHOCYTES ABSOLUTE AUTO 3.3 K/uL (0.6-2.4); LYMPHOCYTES PERCENT AUTO 31.2 % (16.0-40.0); MEAN CORPUSCULAR HEMOGLOBIN 29.8 pg (27.0-32.0); MEAN CORPUSCULAR HGB CONC 32.4 g/dL (31.0-37.0); MEAN CORPUSCULAR VOLUME 91.9 fL (80.0-98.0); MONOCYTES ABSOLUTE AUTO 0.9 K/uL (0.0-0.8); MONOCYTES PERCENT AUTO 8.9 % (0.0-15.0); NEUTROPHILS ABSOLUTE AUTO 5.8 K/uL (1.4-5.7); NEUTROPHILS PERCENT AUTO 54.8 % (48.0-80.0); NRBC ABSOLUTE 0 K/uL; PLATELET COUNT,PLT 275 K/uL (150-400); RED BLOOD CELL COUNT 4.67 M/uL (4.50-5.90); WHITE BLOOD CELL COUNT,WBC 10.48 K/uL (4.0-11.0)
[2022-12-07 23:21] LABS: INR 1.02 (0.86-1.11)
[2022-12-07 23:37] LABS: BLOOD UREA NITROGEN,BUN 10 mg/dL (7.0-18.0); C-REACTIVE PROTEIN <0.20 mg/dL (0.00-0.90); CALCIUM 8.6 mg/dL (8.5-10.1); CHLORIDE,CL 103 mmol/L (98-107); CREATININE 1.2 mg/dL (0.8-1.3); EST CRCL DRUG DOSING (CG) 58.39 mL/min; GLUCOSE RANDOM 174 mg/dL (74-106); SODIUM,NA 137 mmol/L (136-148)
[2022-12-07 23:42] LABS: ESTIMATED GFR 64 mL/min (>60)
[2022-12-08] MEDS ORDERED: diphenhydrAMINE 50 MG/ML SDV IVPUSH ONE (00:11)
[2022-12-08] MEDS ORDERED: Prochlorperazine 10 MG/2 ML SDV IVPUSH ONE (00:12)
[2022-12-08 01:09] VITALS: BP 135/89
== END 2022-12-08 01:07 | disposition home or self-care (01) ==
LOC: MW.ED 22:20
DX: R51.9 Headache, unspecified (principal); M54.12 Radiculopathy, cervical region; I10 Essential (primary) hypertension; I25.2 Old myocardial infarction; E11.9 Type 2 diabetes mellitus without complications; Z95.5 Presence of coronary angioplasty implant and graft; Z79.82 Long term (current) use of aspirin; Z79.84 Long term (current) use of oral hypoglycemic drugs; Z79.899 Other long term (current) drug therapy; Z88.8 Allergy status to other drugs, medicaments and biological substances
CPT/HCPCS: 36415; 70450; 72125; 80048; 84484; 85025; 85610; 85652; 86140; 93005; 96374; 99284; J0780; J3490; 93010

== ENCOUNTER 2023-09-14 16:48 | Emergency (ER) | payer MEDICARE ==
[2023-09-14] MEDS ORDERED: Acetaminophen/HYDROcodone 325-5 MG Tab PO ONE (18:49)
[2023-09-14] MEDS ORDERED: Amoxicillin/Clavulanate K 875-125 MG Tab PO ONE (18:49)
[2023-09-14 18:52] VITALS: BP 152/80; PULSE 82
== END 2023-09-14 18:51 | disposition home or self-care (01) ==
LOC: MW.ED 16:48
DX: K04.7 Periapical abscess without sinus (principal); I10 Essential (primary) hypertension; I25.2 Old myocardial infarction; K21.9 Gastro-esophageal reflux disease without esophagitis; E11.9 Type 2 diabetes mellitus without complications; Z95.5 Presence of coronary angioplasty implant and graft; Z79.02 Long term (current) use of antithrombotics/antiplatelets; Z79.84 Long term (current) use of oral hypoglycemic drugs; Z79.82 Long term (current) use of aspirin; Z79.899 Other long term (current) drug therapy; Z88.8 Allergy status to other drugs, medicaments and biological substances; Z88.6 Allergy status to analgesic agent; Z75.8 Other problems related to medical facilities and other health care
CPT/HCPCS: 99282; 99283

== ENCOUNTER 2024-06-29 15:07 | Emergency (ER) | payer MEDICARE ==
[2024-06-29 16:01] LABS: APPEARANCE,URINE CLOUDY; BILIRUBIN,URINE NEGATIVE (NEGATIVE); GLUCOSE,URINE >=1000 mg/dL (NEGATIVE); KETONES,URINE 15 mg/dL (NEGATIVE); LEUKOCYTE ESTERASE,URINE SMALL (NEGATIVE); NITRITE,URINE POSITIVE (NEGATIVE); OCCULT BLOOD,URINE LARGE (NEGATIVE); PH,URINE 5.5 (5.0-8.0); PROTEIN,URINE >=300 mg/dL (NEGATIVE)
[2024-06-29 16:04] LABS: BACTERIA,URINE 1+ (NEGATIVE); COLOR,URINE RED; EPITHELIAL CELLS,URINE RARE (NONE-FEW); RBC,URINE TOO NUMEROUS TO CT (0-2/HPF); WBC,URINE TOO NUMEROUS TO CT (0-5/HPF)
[2024-06-29] MEDS: cefTRIAXone 1 GM in Lidocaine 1% 2.1 ML IM ONE (16:38)
[2024-06-29 17:08] VITALS: BP 139/88; PULSE 83
== END 2024-06-29 17:08 | disposition home or self-care (01) ==
LOC: MW.ED 15:07
DX: N30.91 Cystitis, unspecified with hematuria (principal); I10 Essential (primary) hypertension; I25.2 Old myocardial infarction; K21.9 Gastro-esophageal reflux disease without esophagitis; E11.9 Type 2 diabetes mellitus without complications; Z90.49 Acquired absence of other specified parts of digestive tract; Z87.891 Personal history of nicotine dependence; Z88.6 Allergy status to analgesic agent; Z88.8 Allergy status to other drugs, medicaments and biological substances; Z79.82 Long term (current) use of aspirin; Z79.84 Long term (current) use of oral hypoglycemic drugs; Z79.899 Other long term (current) drug therapy
CPT/HCPCS: 81001; 87086; 96372; 99283; J0696; J2003

== ENCOUNTER 2024-09-10 20:32 | Emergency (ER) | payer MEDICARE ==
[2024-09-10 21:42] LABS: BASOPHILS ABSOLUTE AUTO 0.06 K/uL (0.00-0.20); BASOPHILS PERCENT AUTO 0.4 % (0.0-1.0); EOSINOPHILS PERCENT AUTO 3.5 % (0.0-6.0); HEMOGLOBIN 11.9 g/dL (14.0-18.0); IMMATURE GRAN ABSOLUTE AUTO 0.05 K/uL (0.00-0.05); IMMATURE GRAN PERCENT AUTO 0.4 % (0.0-0.4); LYMPHOCYTES ABSOLUTE AUTO 2.67 K/uL (1.00-4.80); LYMPHOCYTES PERCENT AUTO 18.8 % (24.0-44.0); MEAN CORPUSCULAR HEMOGLOBIN 26.3 pg (28.0-32.0); MEAN CORPUSCULAR HGB CONC 29.8 g/dL (32.0-36.0); MEAN CORPUSCULAR VOLUME 88.3 fL (83.0-99.0); MONOCYTES ABSOLUTE AUTO 0.96 K/uL (0.00-0.80); MONOCYTES PERCENT AUTO 6.8 % (0.0-8.0); NEUTROPHILS ABSOLUTE AUTO 9.94 K/uL (1.80-7.70); NEUTROPHILS PERCENT AUTO 70.1 % (41.0-71.0); PLATELET COUNT,PLT 336 K/uL (150-400); RED BLOOD CELL COUNT 4.53 M/uL (4.52-5.90); WHITE BLOOD CELL COUNT,WBC 14.18 K/uL (3.9-11.3)
[2024-09-10] MEDS: Sodium Chloride 0.9% 500 ML IV ONE (21:43)
[2024-09-10 21:51] LABS: BILIRUBIN,URINE NEGATIVE (NEGATIVE); COLOR,URINE RED; GLUCOSE,URINE 100 mg/dL (NEGATIVE); KETONES,URINE TRACE mg/dL (NEGATIVE); LEUKOCYTE ESTERASE,URINE SMALL (NEGATIVE); NITRITE,URINE POSITIVE (NEGATIVE); OCCULT BLOOD,URINE LARGE (NEGATIVE); PH,URINE 6.5 (5.0-8.0); PROTEIN,URINE >=300 mg/dL (NEGATIVE)
[2024-09-10 21:56] LABS: APPEARANCE,URINE CLOUDY
[2024-09-10 22:05] LABS: BACTERIA,URINE FEW (NEGATIVE); EPITHELIAL CELLS,URINE RARE (NONE-FEW); RBC,URINE TOO NUMEROUS TO CT (0-2/HPF); WBC,URINE 25-30 (0-5/HPF)
[2024-09-10 22:15] LABS: A/G RATIO 1.2 (0.9-1.6); ALBUMIN 3.7 g/dL (3.4-5.0); BILIRUBIN TOTAL 0.3 mg/dL (0.2-1.0); CALCIUM 8.9 mg/dL (8.5-10.1); CARBON DIOXIDE,CO2 27.5 mmol/L (21.0-32.0); CREATININE 1.1 mg/dL (0.8-1.3); EST CRCL DRUG DOSING (CG) 47.42 mL/min; POTASSIUM,K 4.7 mmol/L (3.5-5.1); PROTEIN TOTAL,TP 6.7 g/dL (6.4-8.2)
[2024-09-10] MEDS: Iopamidol 755 Mg/ML 100 ML Bottle IVPUSH ONE (22:54)
[2024-09-10] MEDS: cefTRIAXone 1 GM in Water For Injection, Sterile 10 ML IVPUSH ONE (23:19)
[2024-09-11 01:23] VITALS: BP 143/86; PULSE 81
== END 2024-09-11 01:23 | disposition home or self-care (01) ==
LOC: MW.ED 20:32
DX: N30.91 Cystitis, unspecified with hematuria (principal); I10 Essential (primary) hypertension; I25.2 Old myocardial infarction; E11.9 Type 2 diabetes mellitus without complications; Z90.49 Acquired absence of other specified parts of digestive tract; Z88.6 Allergy status to analgesic agent; Z88.8 Allergy status to other drugs, medicaments and biological substances; Z79.84 Long term (current) use of oral hypoglycemic drugs; Z79.82 Long term (current) use of aspirin; Z79.899 Other long term (current) drug therapy; Z75.3 Unavailability and inaccessibility of health-care facilities
CPT/HCPCS: 36415; 51798; 71045; 71275; 74174; 80053; 81001; 84484; 85025; 87086; 87088; 87186; 93005; 96361; 96374; 99284; J0696; J7030; Q9967; 93010